=== PATIENT | female | born 1960 | race Asian ===

== ENCOUNTER 2017-05-24 14:40 | Outpatient (CLI) | payer OTHER, BC ==
[2017-05-24 13:09] LABS: BASOPHILS # (AUTO) 0.1 10^3/uL (0.0-0.1); BASOPHILS % (AUTO) 0.9 %; EOSINOPHILS # (AUTO) 0.2 10^3/uL (0.0-0.7); EOSINOPHILS % (AUTO) 4.3 %; HCT - HEMATOCRIT 39.8 % (37.0-47.0); HGB - HEMOGLOBIN 13.2 g/dL (12.0-16.0); LYMPHOCYTES # (AUTO) 2.1 10^3/uL (1.5-3.5); LYMPHOCYTES % (AUTO) 35.9 %; MEAN CORPUSCULAR HEMOGLOBIN 29.8 pg (27.0-31.0); MEAN CORPUSCULAR HGB CONC 33.2 g/dL (32.0-36.0); MEAN CORPUSCULAR VOLUME 89.9 fL (81.0-99.0); MEAN PLATELET VOLUME 8.3 fL (7.9-10.8); MONOCYTES # (AUTO) 0.4 10^3/uL (0.0-1.0); MONOCYTES % (AUTO) 7.2 %; NEUTROPHILS % (AUTO) 51.7 %; RED BLOOD COUNT 4.43 10^6/uL (4.20-5.40); RED CELL DISTRIBUTION WIDTH 12.8 % (12.0-15.0); UNCORRECTED WHITE BLOOD COUNT 5.8 x10^3/uL; WHITE BLOOD COUNT 5.8 x10^3/uL (4.8-10.8)
[2017-05-24 13:41] LABS: ALBUMIN/GLOBULIN RATIO 1.1 (1.0-2.2); BILIRUBIN,TOTAL 0.9 mg/dL (0.2-1.0); BUN - BLOOD UREA NITROGEN 14 mg/dL (6-20); CALCIUM 9.2 mg/dL (8.5-10.3); CARBON DIOXIDE - CO2 26 mmol/L (21-32); CHLORIDE 103 mmol/L (101-111); CHOL/HDL RATIO 3.5 (<4.4); CHOLESTEROL 173 mg/dL; CREATININE 0.6 mg/dL (0.4-1.0); GFR - MDRD 104 (>89); GLUCOSE 99 mg/dL (70-100); HDL CHOLESTEROL 50 mg/dL; LDL/HDL RATIO 2.1 (<4.4); POTASSIUM 3.6 mmol/L (3.5-5.0); SODIUM 135 mmol/L (135-145); TOTAL PROTEIN 8.1 g/dL (6.7-8.2); TRIGLYCERIDES 82 mg/dL; VLDL CHOLESTEROL 16 mg/dL
== END 2017-05-24 14:41 | disposition home or self-care (01) ==
LOC: LAB.WCP 14:40
PROVIDERS: ATTEND Physician Assistant Medical
DX: Z00.00 Encounter for general adult medical examination without abnormal findings (principal)
CPT/HCPCS: 36415; 80053; 80061; 84443; 85025

== ENCOUNTER 2017-06-07 12:03 | Outpatient (CLI) | payer OTHER, BC | END 2017-06-07 12:04 | disposition home or self-care (01) | LOC: DI.N 12:03 | PROVIDERS: ATTEND Physician Assistant Medical | DX: Z53.9 Procedure and treatment not carried out, unspecified reason (principal) ==

== ENCOUNTER 2018-03-18 00:35 | Emergency (ER) | payer OTHER, BC ==
[2018-03-18] MEDS ORDERED: fentaNYL 100 MCG/2 ML VIAL IVP STA (01:11)
[2018-03-18] MEDS ORDERED: ONDANSETRON 4 MG/2 ML VIAL IVP STA (01:11)
[2018-03-18] MEDS ORDERED: SODIUM CHLORIDE 0.9% 1,000 ML IV ONE (01:11)
[2018-03-18 01:22] LABS: BASOPHILS # (AUTO) 0.1 10^3/uL (0.0-0.1); BASOPHILS % (AUTO) 0.5 %; EOSINOPHILS # (AUTO) 0.1 10^3/uL (0.0-0.7); EOSINOPHILS % (AUTO) 0.3 %; HGB - HEMOGLOBIN 14.1 g/dL (12.0-16.0); LYMPHOCYTES % (AUTO) 9.9 %; MEAN CORPUSCULAR HEMOGLOBIN 30.1 pg (27.0-31.0); MEAN CORPUSCULAR HGB CONC 32.8 g/dL (32.0-36.0); MEAN CORPUSCULAR VOLUME 91.9 fL (81.0-99.0); MEAN PLATELET VOLUME 8.4 fL (7.9-10.8); MONOCYTES # (AUTO) 0.6 10^3/uL (0.0-1.0); MONOCYTES % (AUTO) 2.9 %; NEUTROPHILS # (AUTO) 17.2 10^3/uL (1.5-6.6); NEUTROPHILS % (AUTO) 86.4 %; PLT - PLATELET COUNT 268 10^3/uL (130-450); RED BLOOD COUNT 4.69 10^6/uL (4.20-5.40); WHITE BLOOD COUNT 19.9 x10^3/uL (4.8-10.8)
[2018-03-18 01:28] LABS: ALBUMIN 4.3 g/dL (3.2-5.5); ALBUMIN/GLOBULIN RATIO 0.9 (1.0-2.2); BILIRUBIN,TOTAL 0.8 mg/dL (0.2-1.0); CALCIUM 9.9 mg/dL (8.5-10.3); CREATININE 0.8 mg/dL (0.4-1.0); TOTAL PROTEIN 8.9 g/dL (6.7-8.2)
[2018-03-18 01:42] LABS: BILIRUBIN,URINE NEGATIVE (NEGATIVE); GLUCOSE, URINE (UA) NEGATIVE (NEGATIVE); KETONES,URINE (UA) NEGATIVE (NEGATIVE); LEUKOCYTE ESTERASE, URINE NEGATIVE (NEGATIVE); NITRITE,URINE NEGATIVE (NEGATIVE); OCCULT BLOOD,URINE NEGATIVE (NEGATIVE); PH,URINE 7.5 PH (5.0-7.5); PROTEIN,URINE TRACE mg/dL (NEGATIVE); UROBILINOGEN,URINE 0.2 (NORMAL) E.U./dL (NORMAL)
[2018-03-18 01:45] LABS: CLARITY,URINE CLEAR (CLEAR); HCG UR QUAL NEGATIVE
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
[2018-03-18 04:34] VITALS: BP 161/84
--- NOTE | 2018-03-18 04:35 | Ultrasound Report ---
Procedure Date: 03/18/2018 Accession Number: [id number] / [id number] Procedure: US - Abdomen Complete CPT Code: FULL RESULT: EXAM: ABDOMEN ULTRASOUND EXAM DATE: 03/18/2018 04:14 AM. CLINICAL HISTORY: Right sided abd. pain- both RUQ and RLQ. COMPARISON: None. TECHNIQUE: Real-time scanning was performed with static images obtained. FINDINGS: Liver: Echogenic. 15.1 cm. Main portal vein flow: Hepatopetal. Gallbladder: Multiple mobile stones in the gallbladder measuring up to 1.4 cm. Wall thickness is normal at 2.8 mm. No focal tenderness over the gallbladder. Biliary System: Common bile duct measures 5.7 mm. No intrahepatic or extrahepatic ductal dilatation. Pancreas: Visualized portion is unremarkable. Kidneys: Right: 10.5 cm longitudinally. Normal. No contour-deforming mass, stones, or hydronephrosis. Left: 10.5 cm longitudinally. Normal. No contour-deforming mass, stones, or hydronephrosis. Spleen: 6.8 cm. Normal in size and echotexture. Aorta and Inferior Vena Cava: Unremarkable where seen. Other: None. IMPRESSION: 1. Multiple mobile stones in the gallbladder measuring up to 1.4 cm. No obvious cholecystitis. 2. No biliary dilatation seen. 3. Echogenic liver suggesting fatty infiltration. 4. No other acute abnormality seen. RADIA
== END 2018-03-18 05:00 | disposition home or self-care (01) ==
LOC: ED 00:35
DX: K80.20 Calculus of gallbladder without cholecystitis without obstruction (principal)
CPT/HCPCS: 36415; 76700; 80053; 81001; 81003; 81025; 83690; 85025; 87086; 96361; 96374; 99283; 99284

== ENCOUNTER 2018-03-19 15:59 | Outpatient (CLI) | payer OTHER, BC ==
[2018-03-19] MEDS ORDERED: IOPAMIDOL-300 100 ML VIAL ONE (16:45)
[2018-03-19] MEDS ORDERED: IOPAMIDOL-300 50 ML VIAL ONE (16:45)
[2018-03-19] MEDS ORDERED: IOPAMIDOL-300 50 ML VIAL PO ONE (18:30)
[2018-03-19] MEDS ORDERED: IOPAMIDOL-300 100 ML VIAL IVP ONE (18:31)
--- NOTE | 2018-03-19 19:26 | CT Report ---
Procedure Date: 03/19/2018 Accession Number: [id number] / [id number] Procedure: CT - Abdomen/Pelvis W/ CPT Code: FULL RESULT: EXAM: CT ABDOMEN AND PELVIS EXAM DATE: 03/19/2018 06:08 PM. CLINICAL HISTORY: ABDOMINAL PAIN. COMPARISONS: None.. TECHNIQUE: Routine helical CT imaging was performed through the abdomen and pelvis. IV contrast: 100 cc Isovue-300. Enteric contrast: Yes. Reconstructions: Coronal and sagittal. In accordance with CT protocol optimization, one or more of the following dose reduction techniques were utilized for this exam: automated exposure control, adjustment of mA and/or KV based on patient size, or use of iterative reconstructive technique. FINDINGS: Lung Bases: There is bibasilar linear atelectasis. Liver: Normal. No masses. Gallbladder/Bile Ducts: There are multiple gallstones in the gallbladder. Common bile duct appears normal in size. Spleen: Normal. Pancreas: Normal. Adrenal Glands: Normal. Kidneys: Normal. No masses or hydronephrosis. Peritoneal Cavity/Bowel: There are multiple loops of dilated small bowel with small bowel wall thickening in the mid and lower abdomen. The distal small bowel is decompressed. Findings consistent with a mid small bowel obstruction. There is mesenteric edema and a small amount of free fluid. There is no free air or abscess. Central mesenteric vessels are patent. There are findings of enteroenterostomy. Pelvic Organs: Normal. The bladder and visualized pelvic organs are within normal limits. Vasculature: No aneurysms or other significant abnormality. Bones: No significant abnormality. Other: None. IMPRESSION: 1. Dilated proximal with decompressed distal small bowel, suspicious for mid small bowel obstruction. 2. Small bowel wall thickening suspicious for enteritis. 3. Previous small bowel surgery and enteroenterostomy. 4. Cholelithiasis. 5. Small free fluid. No abscess. 6. Lower lobe atelectasis. RADIA The call report notification system was initiated by Dr. Grupo Funk at 19:09 hrs on 03/19/18. The above findings were discussed with Devante by Dr. Grupo Funk at 19:24 hrs on 03/19/18.
== END 2018-03-19 16:00 | disposition home or self-care (01) ==
LOC: DI 15:59
PROVIDERS: ATTEND Family Medicine
DX: K59.9 Functional intestinal disorder, unspecified (principal); K80.20 Calculus of gallbladder without cholecystitis without obstruction; J98.11 Atelectasis
CPT/HCPCS: 74177

== ENCOUNTER 2018-03-19 20:06 | Inpatient (IN) | payer OTHER, BC ==
[2018-03-19 20:33] LABS: BASOPHILS # (AUTO) 0.1 10^3/uL (0.0-0.1); BASOPHILS % (AUTO) 0.5 %; EOSINOPHILS # (AUTO) 0.1 10^3/uL (0.0-0.7); EOSINOPHILS % (AUTO) 0.7 %; HGB - HEMOGLOBIN 13.2 g/dL (12.0-16.0); LYMPHOCYTES # (AUTO) 1.2 10^3/uL (1.5-3.5); LYMPHOCYTES % (AUTO) 9.4 %; MEAN CORPUSCULAR HEMOGLOBIN 30.4 pg (27.0-31.0); MEAN CORPUSCULAR HGB CONC 32.8 g/dL (32.0-36.0); MEAN CORPUSCULAR VOLUME 92.7 fL (81.0-99.0); MONOCYTES # (AUTO) 0.8 10^3/uL (0.0-1.0); MONOCYTES % (AUTO) 6.7 %; NEUTROPHILS # (AUTO) 10.2 10^3/uL (1.5-6.6); NEUTROPHILS % (AUTO) 82.7 %; PLT - PLATELET COUNT 234 10^3/uL (130-450); RED BLOOD COUNT 4.35 10^6/uL (4.20-5.40); RED CELL DISTRIBUTION WIDTH 12.6 % (12.0-15.0); WHITE BLOOD COUNT 12.3 x10^3/uL (4.8-10.8)
[2018-03-19] MEDS ORDERED: LIDOCAINE JELLY 2% 5 ML TUBE TOP STA (20:33)
--- NOTE | 2018-03-19 20:38 | ED Physician Documentation ---
PD HPI ABD PAIN - Stated complaint Stated Complaint: SBO - Chief complaint Chief Complaint: Abd Pain - History obtained from History obtained from: Patient, Family - History of Present Illness Timing - onset: How many days ago (2) Timing - duration: Days (2) Timing - details: Gradual onset Pain level max: 5 Pain level now: 5 Quality: Aching Location: All over / everywhere Radiation: Other (non-radiating) Improved by: Laying still, Vomiting Worsened by: Eating Associated symptoms: Nausea, Vomiting. No: Fever, Hematemesis, Diarrhea, Constipation, Melena, Hematochezia, Dysuria, Hematuria Similar symptoms before: Has not had sx before Recently seen: Emergency Dept (yesterday), Other (clinic today, states SBO on CT scan) Review of Systems Ten Systems: 10 systems reviewed and negative Constitutional: denies: Fever, Chills Ears: denies: Ear pain Nose: denies: Rhinorrhea / runny nose, Congestion Throat: denies: Sore throat Cardiac: denies: Chest pain / pressure Respiratory: denies: Cough GI: reports: Abdominal Pain, Vomiting. denies: Hematemesis, Bloody / black stool Skin: denies: Rash Musculoskeletal: denies: Neck pain, Back pain Neurologic: denies: Focal weakness, Numbness, Headache PD PAST MEDICAL HISTORY - Past Medical History Past Medical History: Yes Cardiovascular: None Respiratory: None Endocrine/Autoimmune: None - Past Surgical History Past Surgical History: Yes General: Bowel surgery /[employer]: Tubal ligation, Hysterectomy - Present Medications Home Medications: Ambulatory Orders Medication Instructions Recorded Confirmed HYDROcod/ACETAM 5/325 [[place] 5/325] 1 ea PO Q6H PRN #15 tablet 03/18/18 Promethazine [Phenergan] 25 - 50 mg PO Q6H PRN #10 tab 03/18/18 - Allergies Allergies/Adverse Reactions: Allergies Allergy/AdvReac Type Severity Reaction Status Date / Time No Known Drug Allergies Allergy Verified 03/18/18 00:51 - Social History Does the pt smoke?: No Smoking Status: Never smoker Does the pt drink ETOH?: No Does the pt have substance abuse?: No - Immunizations Immunizations are current?: Yes - POLST Patient has POLST: No PD ED PE NORMAL - Vitals Vital signs reviewed: Yes - General General: Alert and oriented X 3, No acute distress - HEENT HEENT: Moist mucous membranes - Neck Neck: Supple, no meningeal sign - Cardiac Cardiac: RRR, Strong equal pulses - Respiratory Respiratory: No respiratory distress, Clear bilaterally - Abdomen Abdomen: Soft, Non distended, Other (mild diffuse TTP without peritoneal signs.) - Back Back: No spinal TTP - Derm Derm: Warm and dry, No rash - Extremities Extremities: No edema - Neuro Neuro: Alert and oriented X 3 - Psych Psych: Normal mood, Normal affect Results - Vitals Vitals: Vital Signs - 24 hr 03/19/18 03/19/18 20:09 20:53 Temperature 36.6 C Heart Rate 85 85 Respiratory 18 18 Rate Blood Pressure 129/80 142/70 H O2 Saturation 98 96 Oxygen O2 Source Room air - Labs Labs: Laboratory Tests 03/19/18 03/19/18 03/19/18 20:25 20:25 20:25 WBC 12.3 H RBC 4.35 Hgb 13.2 Hct 40.3 MCV 92.7 MCH 30.4 MCHC 32.8 RDW 12.6 Plt Count 234 MPV 8.0 Neut # (Auto) 10.2 H Lymph # (Auto) 1.2 L Sully # (Auto) 0.8 Eos # (Auto) 0.1 Baso # (Auto) 0.1 Absolute Nucleated RBC 0.00 Nucleated RBC % 0.0 Sodium 132 L Potassium 3.5 Chloride 96 L Carbon Dioxide 27 Anion Gap 9.0 BUN 10 Creatinine 0.7 Estimated GFR (MDRD) 87 L Glucose 130 H Lactic Acid Calcium 9.1 Magnesium 1.8 Total Bilirubin 1.2 H AST 35 ALT 34 Alkaline Phosphatase 50 Total Protein 7.9 Albumin 3.7 Globulin 4.2 Albumin/Globulin Ratio 0.9 L Lipase 28 03/19/18 20:50 WBC RBC Hgb Hct MCV MCH MCHC RDW Plt Count MPV Neut # (Auto) Lymph # (Auto) Sully # (Auto) Eos # (Auto) Baso # (Auto) Absolute Nucleated RBC Nucleated RBC % Sodium Potassium Chloride Carbon Dioxide Anion Gap BUN Creatinine Estimated GFR (MDRD) Glucose Lactic Acid 0.9 Calcium Magnesium Total Bilirubin AST ALT Alkaline Phosphatase Total Protein Albumin Globulin Albumin/Globulin Ratio Lipase PD MEDICAL DECISION MAKING - ED course Complexity details: reviewed results, re-evaluated patient, considered differential, d/w patient, d/w family, d/w building consultant ED course: Patient is a 57-year-old female who presents with a small bowel obstruction on outpatient CT. Images and report were reviewed. Discussed the case with Dr. Hardy, surgeon who will follow along. Also discussed with Dr. Lewis, hospitalist who accepts. NG tube was placed. Normal lactate. This document was made in part using voice recognition software. While efforts are made to proofread this document, sound alike and grammatical errors may occur. - Sepsis Event Vital Signs: Vital Signs - 24 hr 03/19/18 03/19/18 20:09 20:53 Temperature 36.6 C Heart Rate 85 85 Respiratory 18 18 Rate Blood Pressure 129/80 142/70 H O2 Saturation 98 96 Oxygen O2 Source Room air Departure - Departure Disposition: [address] [facility] DC/Xfer Clinical Impression: Small bowel obstruction Condition: Stable Discharge Date/Time: 03/19/18 21:33
[2018-03-19 20:47] LABS: ALBUMIN 3.7 g/dL (3.2-5.5); ALBUMIN/GLOBULIN RATIO 0.9 (1.0-2.2); BILIRUBIN,TOTAL 1.2 mg/dL (0.2-1.0); CALCIUM 9.1 mg/dL (8.5-10.3); CREATININE 0.7 mg/dL (0.4-1.0); TOTAL PROTEIN 7.9 g/dL (6.7-8.2)
[2018-03-19] MEDS ORDERED: ACETAMINOPHEN 1,000 MG/100 ML 100 ML IV PRN (21:11)
[2018-03-19] MEDS: D5NS W/20 MEQ KCL 1,000 ML IV SCH (22:22)
--- NOTE | 2018-03-20 01:32 | XRAY Report ---
Procedure Date: 03/19/2018 Accession Number: [id number] / [id number] Procedure: XR - Chest 1 View X-Ray CPT Code: 04179 FULL RESULT: EXAM: CHEST RADIOGRAPHY EXAM DATE: 03/19/2018 11:44 PM. CLINICAL HISTORY: For NG tube placement. COMPARISON: CHEST 2 VIEW PA/LAT 09/08/2016. TECHNIQUE: 1 view. FINDINGS: Lungs/Pleura: Small lung volumes. There is no significant consolidation. Minimal streaky left basilar atelectasis. No effusion. No definite pneumothorax. Mediastinum: Within exam limitations, the cardiomediastinal contour is normal. Other: Orogastric tube is looped within the upper stomach. Sidehole projects below the gastroesophageal junction. The tip projects over the gastric cardia. IMPRESSION: Orogastric tube tip projects over the upper stomach. RADIA
[2018-03-20 04:45] LABS: ALBUMIN 3.2 g/dL (3.2-5.5); ALBUMIN/GLOBULIN RATIO 0.9 (1.0-2.2); BASOPHILS % (AUTO) 0.3 %; BILIRUBIN,TOTAL 0.6 mg/dL (0.2-1.0); CALCIUM 8.5 mg/dL (8.5-10.3); CREATININE 0.5 mg/dL (0.4-1.0); EOSINOPHILS # (AUTO) 0.1 10^3/uL (0.0-0.7); EOSINOPHILS % (AUTO) 1.6 %; HGB - HEMOGLOBIN 11.9 g/dL (12.0-16.0); LYMPHOCYTES # (AUTO) 1.7 10^3/uL (1.5-3.5); LYMPHOCYTES % (AUTO) 20.1 %; MEAN CORPUSCULAR HEMOGLOBIN 30.6 pg (27.0-31.0); MEAN CORPUSCULAR HGB CONC 32.8 g/dL (32.0-36.0); MONOCYTES # (AUTO) 0.8 10^3/uL (0.0-1.0); NEUTROPHILS # (AUTO) 5.6 10^3/uL (1.5-6.6); PLT - PLATELET COUNT 209 10^3/uL (130-450); RED CELL DISTRIBUTION WIDTH 12.7 % (12.0-15.0); TOTAL PROTEIN 6.6 g/dL (6.7-8.2); WHITE BLOOD COUNT 8.2 x10^3/uL (4.8-10.8)
--- NOTE | 2018-03-20 04:51 | HISTORY & PHYSICAL EXAMINATION ---
DATE OF SERVICE: 03/19/2018 Physician: Charley Landin MD HISTORY OF PRESENT ILLNESS: This is a 57-year-old female of [place] descent who has a past history of tubal ligation and hysterectomy, and possibly another bowel surgery. She otherwise denies a past medical history and takes no prescription medications. Patient started to develop abdominal pain with nausea and vomiting 3 days ago. She came to the emergency room [address] scan was ordered, but the CT machine was broken and not available. She did have an ultrasound of the abdomen. Gallstones were seen, but no evidence of cholecystitis. She was sent home with pain medications and nausea and vomiting medications, and advised to have fluids. She continued to have the same symptoms with no improvement. She saw her doctor today who ordered a CT of the abdomen that was done as an outpatient. The patient was home after this CT scan and was called to come back to the hospital because the CT scan showed a small-bowel obstruction in the mid small bowel. In the ER, she has started to get IV hydration and an NG tube was then placed, and she is being admitted for management of small bowel obstruction. PAST MEDICAL HISTORY: Negative, except several surgeries as above. ALLERGIES: NONE. MEDICATIONS PRIOR TO ADMISSION: None. FAMILY HISTORY: No inherited diseases. SOCIAL HISTORY: She works full-time in the [employer], which includes standing on her feet and walking a lot. She lives with her and 1 child and three other children are in the area. She is a nonsmoker who never smoked, drinks no alcohol now as she "quit drinking" alcohol 6 years ago; she states she was heavier use. She denies any illicit drug use. REVIEW OF SYSTEMS: She had no fever, but did have chills intermittently over the past 2-1/2 days. She did have 1 normal bowel movement yesterday with a normal, formed, brown stool. There was no hematemesis in her vomiting. She took home medicines for pain and nausea, and is somnolent currently. A comprehensive review of systems was performed, and the pertinent positives are above and here, the rest are negative. PHYSICAL EXAMINATION GENERAL: Ill-appearing female. VITAL SIGNS: Blood pressure 130/70, heart rate of 80, afebrile, room air saturation 95%. HEENT: Reveals NG tube in place with clear liquid drainage. Her oral mucosa appears dry. NECK: Without JVD or carotid bruits. CHEST: Clear. HEART: Sounds normal. No murmur. ABDOMEN: Soft with no guarding or rebound. There are decreased bowel sounds in the upper abdomen, but present and normal bowel sounds in the left lower quadrant. EXTREMITIES: No clubbing, cyanosis, edema. NEUROLOGIC: Intact, but she is sleepy. LABORATORIES: Sodium 132, potassium 3.5, BUN 10, creatinine 0.7. Lactic acid 0.9, magnesium 1.8, bilirubin 1.2, otherwise normal LFTs. White blood count 12.3 with a left shift, hemoglobin 13.2, platelet count normal at 234. No INR was done. No urinalysis was done. CT of the abdomen that was done earlier today when she was still an outpatient showed: bibasilar atelectasis in the lungs, multiple gallstones, but the common bile duct appears normal. Normal pancreas. Multiple loops of dilated small bowel, and thickened small bowel wall and mesenteric edema. All findings consistent with mid small bowel obstruction. There is free fluid, but no free air and no abscess. The vessels appear patent and there are findings of an enteroenterostomy. IMPRESSION/DIAGNOSES 1. Small-bowel obstruction. 2. Hyponatremia. 3. Atelectasis, likely related to splinting from the abdominal pain. PLAN: Admit the patient. Continue with IV hydration using saline and electrolytes should be followed. NG decompression and bowel rest to continue. Surgical consult to follow along with us in case she develops a surgical abdomen. Continue with p.r.n. medications for pain and antiemetics. Begin incentive spirometry, given the atelectasis, to prevent a pneumonia. DEEP VENOUS THROMBOSIS PROPHYLAXIS: SCDs. CODE STATUS: FULL CODE. ATTESTATION: The patient is expected to be discharged or transfer to another facility within 96 hours: Yes. TD: 03/20/2018 00:09 MAURICE
[2018-03-20] MEDS ORDERED: PHENOL THROAT SPRAY 177 ML MM PRN (06:19)
[2018-03-20] MEDS: D5NS W/20 MEQ KCL 1,000 ML IV SCH ×2 (06:25→16:24)
[2018-03-20] MEDS: HYDROmorphone 0.5 MG/0.5 ML SYRINGE IVP PRN ×2 (06:27→15:01)
[2018-03-20] MEDS: PANTOPRAZOLE 40 MG VIAL IVP SCH ×2 (06:27→16:21)
[2018-03-20] MEDS: SODIUM CHLORIDE FLUSH 0.9% 10 ML SYRINGE IVP PRN ×3 (06:27→15:02)
[2018-03-20] MEDS: SODIUM CHLORIDE FLUSH 0.9% 10 ML SYRINGE IVP SCH ×3 (06:27→16:21)
[2018-03-20] MEDS: PROCHLORPERAZINE 10 MG/2 ML VIAL IVP PRN ×2 (06:59→15:02)
[2018-03-20] MEDS: POLYETHYLENE GLYCOL 3350 17 GM PACKET PO SCH (08:30)
[2018-03-20] MEDS ORDERED: IOPAMIDOL-300 100 ML VIAL ONE (14:03)
[2018-03-20] MEDS ORDERED: IOPAMIDOL-300 100 ML VIAL IVP ONE (14:26)
--- NOTE | 2018-03-20 15:03 | CT Report ---
Procedure Date: 03/20/2018 Accession Number: [id number] / [id number] Procedure: CT - Abdomen/Pelvis W/ CPT Code: FULL RESULT: EXAM: Abdomen/Pelvis W/ DATE: 03/20/2018 2:24 PM CLINICAL HISTORY: abdominal pain again, left eleazar pain COMPARISON: CT abdomen pelvis 03/19/2018. TECHNIQUE: Routine helical CT imaging was performed through the abdomen and pelvis. IV contrast: 100 mL Isovue 300. Enteric contrast: No Reconstructions: Coronal and sagittal. In accordance with CT protocol optimization, one or more of the following dose reduction techniques were utilized for this exam: automated exposure control, adjustment of mA and/or KV based on patient size, or use of iterative reconstructive technique. FINDINGS: There is persistent focal small bowel wall thickening and dilation of the small bowel up to a caliber of 3.5 cm with surrounding fat stranding approximately 30-50 cm proximal to the small bowel anastomosis. Previously administered oral contrast has progressed to large bowel. A second focal area of nondilated small bowel distal to the anastomosis also demonstrates continued wall thickening with mucosal hyperenhancement and a small amount of nearby interloop fluid, image 26 coronal. No free air. Scant calcifications throughout the mesentery and peritoneum, possibly prior peritonitis or mesenteritis/sclerosing process. Interval increase in scant consolidation at the lung bases, left greater than right. Cholelithiasis of the gallbladder with common bile duct dilation to 8 mm. The liver, spleen, adrenal glands, kidneys and pancreas are unremarkable. There is no pelvic mass. IMPRESSION: 1. No bowel obstruction. 2. Multifocal small bowel wall thickening with signs of inflammation. This is nonspecific but can be seen with infection, inflammation and ischemia. 3. Top normal common bile duct caliber for patient age, 8 mm, in the setting of cholelithiasis. Correlate to alkaline phosphatase levels to exclude choledocholithiasis or resolving gallstone ileus at the small bowel anastomosis site. 4. Abdominal calcifications, likely sign of prior mesenteritis/enteritis. 5. Minimal, increased, dependent changes in the lungs, likely atelectasis. Developing pneumonia is not excluded by imaging. RADIA
[2018-03-20] MEDS ORDERED: PIPERACILLIN/TAZOBACTAM 3.375 GM in SODIUM CHLORIDE 0.9% MINIBAG 100 ML IV SCH (16:00)
--- NOTE | 2018-03-20 16:05 | PROVIDER PROGRESS NOTE ---
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 but she complain left eleazar abdominal pain. she denies CP, SOB, fever, chill, cough Current Medications - Current Medications Current Medications: Active Medications Hydromorphone HCl (Dilaudid Inj Syringe) 0.5 mg IVP Q2H PRN PRN Reason: Pain 8 to 10 Last Admin: 03/20/18 15:01 Dose: 0.5 mg Acetaminophen (Ofirmev) 100 mls @ 400 mls/hr IV Q6HR PRN PRN Reason: Pain or Fever > 38C (100.4F) Last Infusion: 03/19/18 22:40 Dose: Infused Metronidazole (Flagyl 500 Mg/100 Ml) 500 mg in 100 mls @ 100 mls/hr IV Q8H [facility] Ciprofloxacin (Cipro 400 Mg/200 Ml) 200 mls @ 200 mls/hr IV Q12H [facility] Last Admin: 03/20/18 16:21 Dose: 200 mls/hr Potassium Chloride/Dextrose/Sod Cl () 1,000 mls @ 75 mls/hr IV .[id number] [facility] Last Admin: 03/20/18 16:24 Dose: 75 mls/hr Pantoprazole Sodium (Protonix) 40 mg IVP BIDAC [facility] Last Admin: 03/20/18 16:21 Dose: 40 mg Phenol/Menthol (Chloraseptic) 2 sprays MM Q2HR PRN PRN Reason: Throat Pain Last Admin: 03/20/18 06:40 Dose: 2 sprays Polyethylene Glycol (Miralax) 17 gm PO DAILY [facility] Last Admin: 03/20/18 08:30 Dose: Not Given Prochlorperazine Edisylate (Compazine Inj) 10 mg IVP Q6HR PRN PRN Reason: Nausea / Vomiting Last Admin: 03/20/18 15:02 Dose: 10 mg Sodium Chloride (Normal Saline Flush 0.9%) 10 ml IVP PRN PRN PRN Reason: NEEDED PER PROVIDER ORDERS Last Admin: 03/20/18 15:02 Dose: 10 ml Sodium Chloride (Normal Saline Flush 0.9%) 10 ml IVP 0100,0900,1700 [facility] Last Admin: 03/20/18 16:21 Dose: 10 ml No Known Home Medications [No Known Home Medications] 03/20/18 Objective - Vital Signs/Intake & Output Reviewed Vital Signs: Yes Vital Signs: Vital Signs x48h Temp Pulse Resp BP Pulse Ox 03/20/18 14:32 37.0 C 96 21 152/82 H 97 03/20/18 08:39 37.0 C 78 19 128/60 96 Intake & Output: Intake & Output 03/17/18 03/18/18 03/19/18 03/20/18 23:59 23:59 23:59 23:59 Intake Total 100 1000 Output Total 200 100 Balance -100 900 - Objective General Appearance: positive: No acute distress, Alert. negative: Lethargic Eyes Bilateral: positive: Normal inspection, PERRL, No lid inflammation, Conjunctivae nml ENT: positive: ENT inspection nml, Pharynx nml, No signs of dehydration. negative: Purulent nasal drainage, Pharyngeal erythema, Oral lesions Neck: positive: Nml inspection, Thyroid nml, No JVD, Trachea midline. negative : Thyromegaly, Lymphadenopathy (R), Lymphadenopathy (L), Stiff neck, Swelling/ bruising, Tracheal deviation Respiratory: positive: Chest non-tender, No respiratory distress, Breath sounds nml. negative: Wheezes, Rales, Rhonchi Cardiovascular: positive: Regular rate & rhythm, No murmur, No gallop. negative : Irregularly irregular, Extrasystoles, Tachycardia, Bradycardia, JVD present, Systolic murmur, Diastolic murmur Peripheral Pulses: 2+ Radial (R), 2+ Radial (L), 2+ Dorsalis pedis (R), 2+ Dorsalis pedis (L) Abdomen: positive: Non-tender, No organomegaly, Nml bowel sounds, No distention. negative: Tenderness, Guarding, Rebound Back: positive: Nml inspection, CVA tenderness (L). negative: CVA tenderness (R ) Skin: positive: Color nml, No rash, Warm, Dry. negative: Cyanosis, Diaphoresis , Pallor Extremities: positive: Non-tender, Full ROM, Nml appearance. negative: Calf tenderness, Joint swelling, Yg's sign/cords Neurologic/Psychiatric: positive: Oriented x3, Motor nml, Sensation nml, Mood/ affect nml. negative: Weakness, Sensory loss, Facial droop, Slurred/abnml speech, Depressed mood/affect - Lab Results Fish Bones: 03/20/18 04:20 03/20/18 04:20 Other Labs: Lab Results x24hrs 03/20/18 03/20/18 Range/Units 04:20 04:20 WBC 8.2 (4.8-10.8) x10^3/uL RBC 3.90 L (4.20-5.40) 10^6/uL Hgb 11.9 L (12.0-16.0) g/dL Hct 36.2 L (37.0-47.0) % MCV 93.0 (81.0-99.0) fL MCH 30.6 (27.0-31.0) pg MCHC 32.8 (32.0-36.0) g/dL RDW 12.7 (12.0-15.0) % Plt Count 209 (130-450) 10^3/uL MPV 8.0 (7.9-10.8) fL Neut # (Auto) 5.6 (1.5-6.6) 10^3/uL Lymph # (Auto) 1.7 (1.5-3.5) 10^3/uL [place] # (Auto) 0.8 (0.0-1.0) 10^3/uL Eos # (Auto) 0.1 (0.0-0.7) 10^3/uL Baso # (Auto) 0.0 (0.0-0.1) 10^3/uL Absolute Nucleated RBC 0.00 x10^3/uL Nucleated RBC % 0.0 /100WBC Sodium 138 (135-145) mmol/L Potassium 4.0 (3.5-5.0) mmol/L Chloride 107 (101-111) mmol/L Carbon Dioxide 26 (21-32) mmol/L Anion Gap 5.0 L (6-13) BUN 7 (6-20) mg/dL Creatinine 0.5 (0.4-1.0) mg/dL Estimated GFR (MDRD) 128 (>89) Glucose 136 H (70-100) mg/dL Calcium 8.5 (8.5-10.3) mg/dL Total Bilirubin 0.6 (0.2-1.0) mg/dL AST 24 (10-42) IU/L ALT 29 (10-60) IU/L Alkaline Phosphatase 41 L (42-121) IU/L Total Protein 6.6 L (6.7-8.2) g/dL Albumin 3.2 (3.2-5.5) g/dL Globulin 3.4 (2.1-4.2) g/dL Albumin/Globulin Ratio 0.9 L (1.0-2.2) ABX Reporting Has patient been on IV antibiotics over the past 48 hours?: Yes Assessment/Plan - Problem List (1) Thickened small bowel Impression: new CT today reveals NO bowel obstruction, then d/c NG, pt feels hungry, start clear liquid diet multifocal small bowel wall thickening with sing of inflammation in new CT, pt present abdominal pain start Cipro and Flagyl lab and vital monitor (2) Cholelithiasis Impression: pt has normal alkaline phosphatase, and normal total bili, and liver function CT indicate cholelithiasis pt does not have upper quadrant abdominal pain support Qualifiers: Cholelithiasis location: gallbladder Cholecystitis presence: without cholecystitis Biliary obstruction: without biliary obstruction Qualified Code(s): K80.20 - Calculus of gallbladder without cholecystitis without obstruction
[2018-03-20] MEDS: CIPROFLOXACIN 400 MG/200 ML 200 ML IV SCH (16:21)
[2018-03-20] MEDS: metroNIDAZOLE 500 MG/100 ML 500 MG/100 ML BAG IV SCH (17:32)
[2018-03-21] MEDS: metroNIDAZOLE 500 MG/100 ML 500 MG/100 ML BAG IV SCH ×2 (00:38→09:06)
[2018-03-21] MEDS: SODIUM CHLORIDE FLUSH 0.9% 10 ML SYRINGE IVP SCH ×2 (01:41→09:09)
[2018-03-21] MEDS: CIPROFLOXACIN 400 MG/200 ML 200 ML IV SCH (04:21)
[2018-03-21 04:44] LABS: BASOPHILS % (AUTO) 0.4 %; EOSINOPHILS # (AUTO) 0.2 10^3/uL (0.0-0.7); EOSINOPHILS % (AUTO) 2.7 %; HGB - HEMOGLOBIN 11.7 g/dL (12.0-16.0); LYMPHOCYTES # (AUTO) 1.8 10^3/uL (1.5-3.5); LYMPHOCYTES % (AUTO) 20.9 %; MEAN CORPUSCULAR HEMOGLOBIN 31.2 pg (27.0-31.0); MEAN CORPUSCULAR HGB CONC 34.2 g/dL (32.0-36.0); MEAN PLATELET VOLUME 7.8 fL (7.9-10.8); MONOCYTES # (AUTO) 0.8 10^3/uL (0.0-1.0); MONOCYTES % (AUTO) 9.4 %; NEUTROPHILS # (AUTO) 5.7 10^3/uL (1.5-6.6); NEUTROPHILS % (AUTO) 66.6 %; PLT - PLATELET COUNT 210 10^3/uL (130-450); RED BLOOD COUNT 3.74 10^6/uL (4.20-5.40); RED CELL DISTRIBUTION WIDTH 12.7 % (12.0-15.0); WHITE BLOOD COUNT 8.6 x10^3/uL (4.8-10.8)
[2018-03-21 05:01] LABS: ALBUMIN 3.2 g/dL (3.2-5.5); ALKALINE PHOSPHATASE 39 IU/L (42-121); ALT ALANINE AMINOTRANSFERASE 26 IU/L (10-60); AST ASPARTATE AMINOTRANSFERASE 18 IU/L (10-42); BILIRUBIN,TOTAL 0.8 mg/dL (0.2-1.0); BUN - BLOOD UREA NITROGEN < 5 mg/dL (6-20); CALCIUM 8.4 mg/dL (8.5-10.3); CARBON DIOXIDE - CO2 28 mmol/L (21-32); CHLORIDE 107 mmol/L (101-111); CREATININE 0.6 mg/dL (0.4-1.0); GFR - MDRD 104 (>89); GLUCOSE 119 mg/dL (70-100); SODIUM 138 mmol/L (135-145); TOTAL PROTEIN 6.4 g/dL (6.7-8.2)
[2018-03-21] MEDS: PANTOPRAZOLE 40 MG VIAL IVP SCH (07:02)
[2018-03-21] MEDS: D5NS W/20 MEQ KCL 1,000 ML IV SCH (07:02)
[2018-03-21 07:41] VITALS: BP 111/48
[2018-03-21] MEDS: POLYETHYLENE GLYCOL 3350 17 GM PACKET PO SCH (10:43)
--- NOTE | 2018-03-21 13:03 | Discharge Plan ---
Discharge Plan Disposition: Home, Self Care Condition: Poor Prescriptions: Ciprofloxacin HCl [Cipro] 500 mg PO BID #14 tablet Metronidazole [Flagyl] 500 mg PO BID #14 tablet Diet: Regular Activity Restrictions: Activity as Tolerated Shower Restrictions: No (fall precaution) Instruction Topics: Ciprofloxacin tablets, Metronidazole tablets or capsules Additional Instructions or Follow Up instructions: your may follow up your PCP in one week. should your symptoms return or worsen, you may present ER or call 911 for help No Smoking: If you smoke, Please STOP! Call for help. Follow-up with: Wilfredo Flynn MD [Primary Care Provider] -
--- NOTE | 2018-03-21 13:08 | DISCHARGE SUMMARY ---
Discharge Summary Discharge Date: 03/21/18 Discharging Provider: COUGHLIN Primary Care Provider: Dr. Flynn Condition at Discharge: Poor Discharge Disposition: 01 Home, Self Care Discharge Facility Name: home - DIAGNOSES Admission Diagnoses: (1)Small bowel obstruction (2) Cholelithiasis Discharge Diagnoses with Status of Each Condition: (1) Thickened small bowel No abdominal pain, no nausea/vomiting. pt tolerate regular diet. pt had bowel movement. new CT reveals no SBO. pt is prescribed Cipro and Flagyl to home. pt is very happy to be d/c to home today. new CT reveals no SBO but with thickened small bowel and pt still complain of abdominal pain. After treat with cipro and flagyl. pt is asymptomatic, and tolerate regular diet, and request d/c to home, and happy to be d/c to home (2) Cholelithiasis stable, no pain. US and CT of abdomen reveals no acute findings - HPI History of Present Illness: please reviews Dr. Landin's HPI for in detail. Briefly pt was admitted for SBO. surgery consult was made. pt had bowel movement next day but still complaint abdominal pain at left. new CT reveals no SBO but with thickened small bowel and pt still complain of abdominal pain. After treat with cipro and flagyl. pt is asymptomatic, and tolerate regular diet. - ALLERGIES Allergies/Adverse Reactions: Allergies Allergy/AdvReac Type Severity Reaction Status Date / Time No Known Drug Allergies Allergy Verified 03/18/18 00:51 - MEDICATIONS Home Medications: Ambulatory Orders Medication Instructions Recorded Confirmed Ciprofloxacin HCl [Cipro] 500 mg PO BID #14 tablet 03/21/18 Metronidazole [Flagyl] 500 mg PO BID #14 tablet 03/21/18 - PHYSICAL EXAM AT DISCHARGE General Appearance: positive: No acute distress, Alert. negative: Lethargic Eyes Bilateral: positive: Normal inspection, PERRL, No lid inflammation, Conjunctivae nml ENT: positive: ENT inspection nml, Pharynx nml, No signs of dehydration. negative: Purulent nasal drainage, Pharyngeal erythema, Oral lesions Neck: positive: Nml inspection, Thyroid nml, No JVD, Trachea midline. negative : Thyromegaly, Lymphadenopathy (R), Lymphadenopathy (L), Stiff neck, Swelling/ bruising, Tracheal deviation Respiratory: positive: Chest non-tender, No respiratory distress, Breath sounds nml. negative: Wheezes, Rales, Rhonchi Cardiovascular: positive: Regular rate & rhythm, No murmur, No gallop. negative : Irregularly irregular, Extrasystoles, Tachycardia, Bradycardia, JVD present, Systolic murmur, Diastolic murmur Peripheral Pulses: positive: 2+ Abdomen: positive: Non-tender, No organomegaly, Nml bowel sounds, No distention. negative: Tenderness, Guarding, Rebound Back: positive: Nml inspection. negative: CVA tenderness (R), CVA tenderness (L ) Skin: positive: Color nml, No rash, Warm, Dry. negative: Cyanosis, Diaphoresis , Pallor Extremities: positive: Non-tender, Full ROM, Nml appearance. negative: Calf tenderness, Joint swelling, Yg's sign/cords Neurologic/Psychiatric: positive: Oriented x3, Motor nml, Sensation nml, Mood/ affect nml. negative: Weakness, Sensory loss, Facial droop, Slurred/abnml speech, Depressed mood/affect - LABS Result Diagrams: 03/21/18 04:10 03/21/18 04:10 - FOLLOW UP Follow Up: your may follow up your PCP in one week. should your symptoms return or worsen, you may present ER or call 911 for help - TIME SPENT Time Spent in Discharge (Minutes): 45
== END 2018-03-21 13:40 | disposition home or self-care (01) | DRG 389 ==
LOC: ED 20:06 → MS3 21:05
PROVIDERS: ADMIT Internal Medicine; ATTEND Nurse Practitioner Gerontology
DX: K56.609 Unspecified intestinal obstruction, unspecified as to partial versus complete obstruction (principal); J98.11 Atelectasis; K80.20 Calculus of gallbladder without cholecystitis without obstruction; K59.9 Functional intestinal disorder, unspecified; Z98.890 Other specified postprocedural states
CPT/HCPCS: 36415; 71045; 74177; 80053; 83605; 83690; 83735; 85025; 99284; 99285

== ENCOUNTER 2018-10-18 10:42 | Outpatient (CLI) | payer OTHER, BC ==
[2018-10-18 19:21] LABS: CHOL/HDL RATIO 3.3 (<4.4); CHOLESTEROL 178 mg/dL; HDL CHOLESTEROL 54 mg/dL; LDL CHOLESTEROL,CALCULATED 110 mg/dL; VLDL CHOLESTEROL 14 mg/dL
[2018-10-18 19:51] LABS: HB2 TOTAL 14.6 g/dL; HEMOGLOBIN A1C 0.51 g/dL; HEMOGLOBIN A1C % 5.3 % (4.6-6.2)
== END 2018-10-18 10:43 | disposition home or self-care (01) ==
LOC: LAB.WCP 10:42
PROVIDERS: ATTEND Family Medicine
DX: M89.9 Disorder of bone, unspecified (principal); E55.9 Vitamin D deficiency, unspecified; M85.80 Other specified disorders of bone density and structure, unspecified site; R73.9 Hyperglycemia, unspecified
CPT/HCPCS: 36415; 80061; 83036; 83721; 84443

== ENCOUNTER 2018-11-15 09:15 | Outpatient (CLI) | payer OTHER, BC ==
--- NOTE | 2018-11-15 10:07 | Mammography Report ---
Reason: SCREENING MAMMO Procedure Date: 11/15/2018 Accession Number: [id number] / [id number] Procedure: MGN - Screening Mammo Dig Bilat CPT Code: FULL RESULT: EXAM: Screening Mammo Dig Bilat DATE: 11/15/2018 9:42 AM CLINICAL HISTORY: Screening encounter. No reported risk factors. TECHNIQUE: Bilateral CC and MLO views were obtained. A left laterally exaggerated CC view was obtained. COMPARISON: 06/07/2017 through 07/22/2014. FINDINGS: The breasts demonstrate scattered fibroglandular densities bilaterally. There are coarse typically benign calcifications. No suspicious masses, clustered microcalcifications, or regions of architectural distortion are identified. IMPRESSION: Benign findings RECOMMENDATION: Routine annual screening unless otherwise clinically indicated. BIRADS CATEGORY 2: Benign findings STANDARD QUALIFYING STATEMENTS: 1. This examination was reviewed with the aid of Computer-Aided Detection (CAD). 2. A negative or benign imaging report should not delay biopsy if clinically suspicious findings are present. Consider surgical consultation if warrented. More than 5% of cancers are not identified by imaging. 3. Dense breasts may obscure an underlying neoplasm.
== END 2018-11-15 09:16 | disposition home or self-care (01) ==
LOC: DI.N 09:15
DX: Z12.31 Encounter for screening mammogram for malignant neoplasm of breast (principal)
CPT/HCPCS: 77067

== ENCOUNTER 2018-12-27 08:00 | Outpatient (CLI) | payer OTHER, BC ==
[2018-12-27 13:01] LABS: CHOL/HDL RATIO 3.1 (<4.4); CHOLESTEROL 156 mg/dL; HDL CHOLESTEROL 51 mg/dL; LDL CHOLESTEROL,CALCULATED 93 mg/dL; LDL/HDL RATIO 1.8 (<4.4); VLDL CHOLESTEROL 12 mg/dL
[2018-12-27 13:13] LABS: HB2 TOTAL 14.1 g/dL; HEMOGLOBIN A1C 0.49 g/dL; HEMOGLOBIN A1C % 5.3 % (4.6-6.2)
== END 2018-12-27 23:59 | disposition home or self-care (01) ==
LOC: LAB.WCP 08:00
PROVIDERS: ATTEND Family Medicine
DX: M85.80 Other specified disorders of bone density and structure, unspecified site (principal); E55.9 Vitamin D deficiency, unspecified; E73.9 Lactose intolerance, unspecified; Z01.84 Encounter for antibody response examination
CPT/HCPCS: 36415; 80061; 83036; 83721; 84443; 86765

== ENCOUNTER 2021-03-08 15:30 | Inpatient (IN) | payer OTHER, BC ==
[2021-03-08] MEDS ORDERED: HYDROmorphone 1 MG/ML CARPUJECT IVP STA (15:51)
[2021-03-08] MEDS ORDERED: ONDANSETRON 4 MG/2 ML VIAL IVP STA (15:51)
[2021-03-08] MEDS ORDERED: SODIUM CHLORIDE 0.9% 1,000 ML IV STA (15:51)
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
[2021-03-08 16:01] LABS: BASOPHILS % (AUTO) 0.3 %; EOSINOPHILS # (AUTO) 0.1 10^3/uL (0.0-0.7); EOSINOPHILS % (AUTO) 0.5 %; HCT - HEMATOCRIT 47.2 % (37.0-47.0); HGB - HEMOGLOBIN 15.3 g/dL (12.0-16.0); LYMPHOCYTES # (AUTO) 1.8 10^3/uL (1.5-3.5); MEAN CORPUSCULAR HEMOGLOBIN 29.8 pg (27.0-31.0); MEAN CORPUSCULAR HGB CONC 32.4 g/dL (32.0-36.0); MEAN CORPUSCULAR VOLUME 91.8 fL (81.0-99.0); MEAN PLATELET VOLUME 9.5 fL (7.9-10.8); MONOCYTES # (AUTO) 0.8 10^3/uL (0.0-1.0); NEUTROPHILS # (AUTO) 10.2 10^3/uL (1.5-6.6); NEUTROPHILS % (AUTO) 78.9 %; PLT - PLATELET COUNT 283 10^3/uL (130-450); RED BLOOD COUNT 5.14 10^6/uL (4.20-5.40); RED CELL DISTRIBUTION WIDTH 12.3 % (12.0-15.0)
[2021-03-08] MEDS ORDERED: IOVERSOL 320 100 ML VIAL IVP ONE ×3 (16:08→16:43)
[2021-03-08 16:15] LABS: ALBUMIN 4.7 g/dL (3.2-5.5); BILIRUBIN,TOTAL 1.1 mg/dL (0.2-1.0); CALCIUM 9.9 mg/dL (8.5-10.3); CREATININE 0.6 mg/dL (0.4-1.0); POTASSIUM 3.4 mmol/L (3.5-5.0); TOTAL PROTEIN 9.2 g/dL (6.7-8.2)
[2021-03-08 16:17] LABS: BILIRUBIN,URINE NEGATIVE (NEGATIVE); GLUCOSE, URINE (UA) NEGATIVE (NEGATIVE); KETONES,URINE (UA) NEGATIVE (NEGATIVE); LEUKOCYTE ESTERASE, URINE NEGATIVE (NEGATIVE); NITRITE,URINE NEGATIVE (NEGATIVE); OCCULT BLOOD,URINE NEGATIVE (NEGATIVE); PROTEIN,URINE NEGATIVE (NEGATIVE); UROBILINOGEN,URINE 0.2 (NORMAL) E.U./dL (NORMAL)
[2021-03-08 16:18] LABS: CLARITY,URINE CLEAR (CLEAR)
--- NOTE | 2021-03-08 16:49 | CT Report ---
PROCEDURE: Abdomen/Pelvis W INDICATIONS: gen abd pain; ? SBO CONTRAST: IV CONTRAST: Optiray 320 ml: 100 PO CONTRAST: *NO PO CONTRAST TECHNIQUE: After the administration of IV contrast, 5 mm thick sections acquired from the diaphragms to the symp hysis. 5 mm thick coronal and sagittal reformats were acquired. For radiation dose reduction, the f ollowing was used: automated exposure control, adjustment of mA and/or kV according to patient size. COMPARISON: CT abdomen pelvis 03/20/2018 FINDINGS: Image quality: Excellent. ABDOMEN: Lung bases: Scarring is present at the left lung base. Heart size is normal. Solid organs: Liver and spleen are normal in size and enhancement. Gallbladder demonstrates luminal stones without wall thickening, unchanged Biliary system is non dilated. Pancreas enhances normall y. No adrenal nodules. Kidneys demonstrate normal size and enhancement, without hydronephrosis. Peritoneum and bowel: Dilated loop of small bowel is present with greatest AP dimension measuring 4.2 cm. Appears to be within the right mid abdomen. No free fluid or air. Nodes and vessels: No retroperitoneal or mesenteric adenopathy by size criteria. Aorta and inferior vena cava are normal in size. Miscellaneous: No ventral hernias. PELVIS: Genitourinary: Bladder wall thickness is normal. Miscellaneous: No inguinal hernias or adenopathy. Bones: No suspicious bony lesions. No vertebral body compression fractures. IMPRESSION: 1. Partial small bowel obstruction as above. No evidence of perforation. Reviewed by: Yamilka Sharp MD on 03/08/2021 4:48 PM PDT Approved by: Yamilka Sharp MD on 03/08/2021 4:48 PM PDT Station ID: [id number]
[2021-03-08] MEDS ORDERED: ONDANSETRON 4 MG/2 ML VIAL IVP PRN (17:43)
[2021-03-08] MEDS ORDERED: HYDROmorphone 0.5 MG/0.5 ML SYRINGE IVP PRN (17:43)
[2021-03-08] MEDS ORDERED: ACETAMINOPHEN 1,000 MG/100 ML 100 ML IV PRN (17:43)
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
[2021-03-08 19:00] LABS: B. PARAPERTUSSIS- RESP PCR PAN NOT DETECTED; B. PERTUSSIS- RESP PCR PANEL NOT DETECTED; C. PNEUMONIAE- RESP PCR PANEL NOT DETECTED; CORONAVIRUS 229E-RESP PCR NOT DETECTED; CORONAVIRUS HKU1-RESP PCR NOT DETECTED; CORONAVIRUS NL63-RESP PCR NOT DETECTED; CORONAVIRUS OC43-RESP PCR NOT DETECTED; HUMAN METAPNEUMOVIRUS NOT DETECTED; INFLUENZA A- RESP PCR PANEL NOT DETECTED; INFLUENZA B - RESP PCR PANEL NOT DETECTED; M. PNEUMONIAE- RESP PCR PANEL NOT DETECTED; PARAINFLUENZA VIRUS 1 NOT DETECTED; PARAINFLUENZA VIRUS 2 NOT DETECTED; PARAINFLUENZA VIRUS 3 NOT DETECTED; PARAINFLUENZA VIRUS 4 NOT DETECTED; RHINOVIRUS/ENTEROVIRUS NOT DETECTED; RSV- RESP PCR PANEL NOT DETECTED; SARS-CoV-2 -RESP PCR PANEL NOT DETECTED
[2021-03-08] MEDS: D5NS W/20 MEQ KCL 1,000 ML IV SCH (19:02)
[2021-03-08] MEDS: SODIUM CHLORIDE FLUSH 0.9% 10 ML SYRINGE IVP PRN (19:03)
[2021-03-08] MEDS: methocarbamoL 500 MG TABLET PO SCH (19:03)
[2021-03-08] MEDS: METOCLOPRAMIDE 10 MG/2 ML VIAL IVP SCH (19:03)
--- NOTE | 2021-03-08 21:26 | XRAY Report ---
PROCEDURE: Chest for Line Placement INDICATIONS: NG placement TECHNIQUE: One view of the chest was acquired. COMPARISON: 03/19/2018. FINDINGS: Surgical changes and devices: There is a nasogastric tube extending into the proximal stomach with th e tip in the region of the distal esophagus or gastroesophageal junction. Lungs and pleura: No pleural effusions or pneumothorax. Linear opacities are redemonstrated in the left lung base peripherally compatible scarring. No definite acute consolidation. Mediastinum: Mediastinal contours appear normal. Heart size is normal. Bones and chest wall: No suspicious bony lesions. Overlying soft tissues appear unremarkable. IMPRESSION: 1. Nasogastric tube extends into the proximal stomach, with the side-port in the region of the distal esophagus or gastroesophageal junction. Recommend further advancement into the stomach. Reviewed by: Vickey Walden MD on 03/08/2021 9:25 PM PDT Approved by: Vickey Walden MD on 03/08/2021 9:25 PM PDT Station ID: [id number]
[2021-03-09] MEDS: METOCLOPRAMIDE 10 MG/2 ML VIAL IVP SCH ×5 (00:54→23:49)
[2021-03-09] MEDS: methocarbamoL 500 MG TABLET PO SCH ×5 (00:54→23:49)
[2021-03-09] MEDS: SODIUM CHLORIDE FLUSH 0.9% 10 ML SYRINGE IVP PRN ×2 (00:55→06:15)
[2021-03-09] MEDS: SODIUM CHLORIDE FLUSH 0.9% 10 ML SYRINGE IVP SCH ×4 (02:55→23:56)
[2021-03-09] MEDS: D5NS W/20 MEQ KCL 1,000 ML IV SCH ×3 (03:15→19:49)
[2021-03-09] MEDS ORDERED: PHENOL THROAT SPRAY 177 ML MM PRN (05:40)
[2021-03-09] MEDS: PANTOPRAZOLE 40 MG VIAL IVP SCH (06:15)
[2021-03-09] MEDS: ENOXAPARIN 40 MG/0.4 ML SYRINGE SUBQ SCH (08:34)
--- NOTE | 2021-03-09 09:17 | PHARMACY PROGRESS NOTE ---
- Best Possible Medication History Admit Date and Time: 03/08/21 1742 Processed by: Nursing Medication History completed: Yes Patient Interview: Completed (MED REC COMPLETED BY NURSING) As the person ultimately responsible for medication therapy, providers are able to order a medication from an existing home medication list in [facility] via the "Reconcile Routine" prior to Confirmation of that medication by work station support specialist. Such practice is discouraged except when the physician, in their clinical judgment, deems that a medical need exists for a medication without regard to previous use.
[2021-03-10] MEDS: D5NS W/20 MEQ KCL 1,000 ML IV SCH ×3 (04:01→20:45)
[2021-03-10] MEDS: PANTOPRAZOLE 40 MG VIAL IVP SCH (06:14)
[2021-03-10] MEDS: METOCLOPRAMIDE 10 MG/2 ML VIAL IVP SCH ×3 (06:14→17:17)
[2021-03-10] MEDS: methocarbamoL 500 MG TABLET PO SCH ×3 (06:14→17:17)
[2021-03-10] MEDS: ENOXAPARIN 40 MG/0.4 ML SYRINGE SUBQ SCH (08:51)
[2021-03-10] MEDS: SODIUM CHLORIDE FLUSH 0.9% 10 ML SYRINGE IVP SCH ×2 (08:51→17:17)
[2021-03-10] MEDS ORDERED: IOVERSOL 320 100 ML VIAL IVP ONE ×2 (15:06→16:48)
[2021-03-10] MEDS ORDERED: IOVERSOL 320 50 ML VIAL ONE (15:07)
[2021-03-10] MEDS ORDERED: IOVERSOL 320 50 ML VIAL PO ONE (16:48)
--- NOTE | 2021-03-10 17:15 | CT Report ---
PROCEDURE: Abdomen/Pelvis W INDICATIONS: evaluate for resolution of sbo CONTRAST: IV CONTRAST: Optiray 320 ml: 100 PO CONTRAST: Optiray 320 ml50 TECHNIQUE: After the administration of oral and intravenous contrast, 5 mm thick sections acquired from the diap hragms to the symphysis. 5 mm thick coronal and sagittal reformats were acquired. For radiation dos e reduction, the following was used: automated exposure control, adjustment of mA and/or kV accordin g to patient size. COMPARISON: CT abdomen and pelvis 03/08/2021. FINDINGS: Image quality: Excellent. ABDOMEN: Lung bases: Mild streaky opacity at the lung bases is most consistent with atelectasis. A nodular opa city at the left lung base is increased in size and has the appearance of round atelectasis. Adjacent calcified granuloma. Heart size is normal. Solid organs: Liver and spleen are normal in size and enhancement. Gallbladder demonstrate several gallstones. Biliary system is non dilated. Pancreas enhances normally. No adrenal nodules. Kidney s demonstrate normal size and enhancement, without hydronephrosis. Peritoneum and bowel: Enteric tube terminating in the stomach. A few mildly prominent loops of small bowel in the left abdomen. This is substantially improved. Oral contrast transits to the level of th e distal transverse colon. Suture material in the left abdomen. A few colonic diverticuli. Appendix i s not dilated. No free fluid or air. Nodes and vessels: No retroperitoneal or mesenteric adenopathy by size criteria. Aorta and inferior vena cava are normal in size. Miscellaneous: No ventral hernias. PELVIS: Genitourinary: Bladder wall thickness is normal. Bladder is prominent. Post hysterectomy. Miscellaneous: No inguinal hernias or adenopathy. Bones: No suspicious bony lesions. No vertebral body compression fractures. IMPRESSION: 1. Small bowel obstruction is essentially resolved. Enteric tube in the stomach. 2. No free fluid. No pneumoperitoneum. 3. Bibasal atelectasis and probable round atelectasis. Reviewed by: Baljit Stoddard MD on 03/10/2021 5:14 PM PDT Approved by: Baljit Stoddard MD on 03/10/2021 5:14 PM PDT Station ID: [id number]
[2021-03-11] MEDS: methocarbamoL 500 MG TABLET PO SCH ×2 (00:31→06:33)
[2021-03-11] MEDS: METOCLOPRAMIDE 10 MG/2 ML VIAL IVP SCH ×2 (00:32→06:33)
[2021-03-11] MEDS: SODIUM CHLORIDE FLUSH 0.9% 10 ML SYRINGE IVP SCH (00:32)
--- NOTE | 2021-03-11 05:14 | PROVIDER PROGRESS NOTE ---
Progress Note Subjective NG tube in place. No flatus. No bowel movement Objective Afebrile hemodynamically acceptable General Appearance: positive: No acute distress Eyes Bilateral: positive: Normal inspection ENT: positive: ENT inspection nml Neck: positive: Nml inspection Respiratory: positive: Chest non-tender, No respiratory distress, Breath sounds nml. negative: Wheezes, Rales, Rhonchi Cardiovascular: positive: Regular rate & rhythm Abdomen: positive: No distention, Other. negative: Guarding, Rebound Extremities: positive: Non-tender, Full ROM, Nml appearance Neurologic/Psychiatric: positive: Oriented x3, CN's nml (2-12) Abdomen softly distended, no rebound or guarding. Impression/Plan Hospital day #2 partial small bowel obstruction awaiting resolution. Plan as follows: 1. Bowel rest, nasogastric decompression, IV fluid resuscitation. 2. Serial abdominal exams, plain film imaging, possible repeat imaging with CT and contrast challenge. 3. May need operative intervention if fails conservative management. Will follow closely. 4. Electrolytes at this time we will continue to monitor them with daily lab draws.
[2021-03-11] MEDS: PANTOPRAZOLE 40 MG VIAL IVP SCH (06:33)
--- NOTE | 2021-03-11 07:31 | PROVIDER PROGRESS NOTE ---
Progress Note Subjective Patient reports bowel movement with flatus. Nasogastric tube removed and CT scan with oral contrast obtained. Overall feels much improved Objective Afebrile hemodynamically acceptable General Appearance: positive: No acute distress Eyes Bilateral: positive: Normal inspection ENT: positive: ENT inspection nml Neck: positive: Nml inspection Respiratory: positive: Chest non-tender, No respiratory distress, Breath sounds nml. negative: Wheezes, Rales, Rhonchi Cardiovascular: positive: Regular rate & rhythm Abdomen: positive: No distention, Other. negative: Guarding, Rebound Extremities: positive: Non-tender, Full ROM, Nml appearance Neurologic/Psychiatric: positive: Oriented x3, CN's nml (2-12) Abdomen Soft, no tenderness to palpation, no rebound or guarding Impression/Plan Hospital day #3 resolving partial small bowel obstruction awaiting resolution. Advance diet. Likely discharge to home tomorrow morning.
[2021-03-11 07:55] VITALS: BP 132/56
--- NOTE | 2021-03-11 08:58 | Discharge Plan ---
Discharge Plan Problem Reviewed?: Yes Disposition: 01 Home, Self Care Condition: Good Diet: Soft Activity Restrictions: Activity as Tolerated Shower Restrictions: No Driving Restrictions: No Weight Bearing: Full Weight Instruction Topics: Obstruction Sm Bowel Plan of Treatment: DISCHARGE INSTRUCTIONS TEMPLATE: No heavy lifting, pushing, or pulling. Stairs are allowed, no strenuous/exertional activities. 5-10lbs weight carrying limit (i.e. gallon of milk) Call or proceed to clinic/ER for fevers, severe pain, nausea, vomiting, inability to pass flatus/stool, bleeding, wound redness/discharge, weakness, excessively loose stool/diarrhea, or for any other reasonably worrisome symptom or concern. Soft diet, no raw vegetables, avoid high fiber foods. Colace 100mg by mouth twice to three times daily while taking narcotic pain medication. If no bowel movement in 24-48hr, may take 17g Miralax in 8oz water twice daily until bowel movement. May shower, no submersive bathing. Follow up in clinic in 2-[address] while taking narcotic pain medications. Follow up with primary care provider and/or medical subspecialist following discharge as well. Patient not allowed to drive self today or within 24 hours of surgery. No Smoking: If you smoke, Please STOP! Call for help.
--- NOTE | 2021-03-11 08:59 | DISCHARGE SUMMARY ---
"Discharge Summary Admit Date: 03/08/21 Discharge Date: 03/11/21 Primary Care Provider: Eric Code Status: Attempt Resuscitation Condition at Discharge: Good Discharge Disposition: 01 Home, Self Care - DIAGNOSES Admission Diagnoses: 1. History of trauma laparotomy 2. History of peritonitis 3. Recurrent small bowel obstruction Discharge Diagnoses with Status of Each Condition: 1. History of trauma laparotomy - STABLE 2. History of peritonitis - STABLE 3. Recurrent small bowel obstruction - RESOLVED - HPI History of Present Illness: 60-year-old female presenting for partial small bowel obstruction. Nausea vomiting. Historic bowel obstruction with similar symptoms previously. Historic trauma laparotomy remotely for perforated viscus. No significant family history. Notable past surgical history to include trauma laparotomy per above. Patient in acute change in bowel function, denies bleeding per rectum, and also denies reflux associated symptoms. No history of heart attack or stroke. Patient takes no systemic anticoagulation. Endoscopic history includes normal colonoscopy. - CONSULTS | PROCEDURES Consultations: NONE Procedures: NONE - HOSPITAL COURSE Hospital Course: 60 year old female with history of trauma laparotomy, secondary to perforated viscus. She presents with partial small bowel obstruction with associated obstipation. No peritoneal signs at this time. Plan as follows: 1. bowel rest, nasogastric decompression, IV fluid resuscitation. 2. Serial abdominal exams, plain film imaging, possible repeat imaging with CT and contrast challenge. 3. May need operative intervention if fails conservative management. Will follow closely. 4. Electrolytes [normal] at this time we will continue to monitor them with daily lab draws. CT abdomen pelvis impression March 08, 2021: 1. Partial small bowel obstruction with no evidence of perforation Patient was admitted with bowel rest and nasogastric tube decompression. On hospital day #3, the patient was notable for bowel function. Nasogastric tube was removed and repeat imaging was performed. Patient at this time was noted for passage of contrast with multiple bowel movements. Tolerated oral intake without any complication. Denied nausea denied vomiting. Was advanced for diet without any complication. Patient was tolerating p.o. nutrition with soft diet, voiding spontaneously, with positive resumption of bowel function. Afebrile hemodynamically acceptable. Electrolytes repleted throughout and blood counts as a relates to risks of anemia in the perioperative setting and leukocytosis as an inflammatory marker were all stable without any concerns. Discharge instructions given. Plan for follow-up. - ALLERGIES Allergies/Adverse Reactions: Allergies Allergy/AdvReac Type Severity Reaction Status Date / Time No Known Drug Allergies Allergy Verified 03/08/21 15:39 - MEDICATIONS Home Medications: Ambulatory Orders Medication Instructions Recorded Confirmed No Known Home Medications 03/08/21 03/08/21 - PHYSICAL EXAM AT DISCHARGE Physical Exam Other/Comments: General Appearance: positive: No acute distress Eyes Bilateral: positive: Normal inspection ENT: positive: ENT inspection nml Neck: positive: Nml inspection Respiratory: positive: Chest non-tender, No respiratory distress, Breath sounds nml. negative: Wheezes, Rales, Rhonchi Cardiovascular: positive: Regular rate & rhythm Abdomen: positive: No distention, Other. negative: Guarding, Rebound Extremities: positive: Non-tender, Full ROM, Nml appearance Neurologic/Psychiatric: positive: Oriented x3, CN's nml (2-12) Abdomen specified: Soft, nondistended, no palpable hernias, well-healed midline scar. - LABS Result Diagrams: 03/08/21 13:55 03/08/21 13:55 - TIME SPENT Time Spent in Discharge (Minutes): 30"
== END 2021-03-11 09:37 | disposition home or self-care (01) | DRG 390 ==
LOC: ED 15:30 → MS2 17:43 → OBSVTOIN 03-11 07:31
PROVIDERS: ADMIT Surgery; ATTEND Surgery
DX: K56.600 Partial intestinal obstruction, unspecified as to cause (principal); Z87.19 Personal history of other diseases of the digestive system; Z20.822 Contact with and (suspected) exposure to COVID-19; Z98.890 Other specified postprocedural states
CPT/HCPCS: 0202U; 36415; 71045; 74177; 80053; 81003; 83605; 83690; 85025; 96365; 96366; 96367; 96368; 96372; 96375; 96376; 99284; 99285; A9270; G0378; J0131; J1170; J1650; J2765; Q9967; 81001; 87086

== ENCOUNTER 2021-05-09 10:39 | Outpatient (CLI) | payer OTHER, BC ==
[2021-05-09 17:58] LABS: BASOPHILS # (AUTO) 0.1 10^3/uL (0.0-0.1); BASOPHILS % (AUTO) 0.9 %; EOSINOPHILS # (AUTO) 0.2 10^3/uL (0.0-0.7); EOSINOPHILS % (AUTO) 3.4 %; HCT - HEMATOCRIT 40.3 % (37.0-47.0); HGB - HEMOGLOBIN 13.2 g/dL (12.0-16.0); LYMPHOCYTES # (AUTO) 1.5 10^3/uL (1.5-3.5); LYMPHOCYTES % (AUTO) 28.8 %; MEAN CORPUSCULAR HEMOGLOBIN 30.6 pg (27.0-31.0); MEAN CORPUSCULAR HGB CONC 32.8 g/dL (32.0-36.0); MEAN CORPUSCULAR VOLUME 93.3 fL (81.0-99.0); MEAN PLATELET VOLUME 10.7 fL (7.9-10.8); MONOCYTES # (AUTO) 0.4 10^3/uL (0.0-1.0); MONOCYTES % (AUTO) 7.2 %; NEUTROPHILS # (AUTO) 3.2 10^3/uL (1.5-6.6); NEUTROPHILS % (AUTO) 59.5 %; PLT - PLATELET COUNT 263 10^3/uL (130-450); RED BLOOD COUNT 4.32 10^6/uL (4.20-5.40); RED CELL DISTRIBUTION WIDTH 12.6 % (12.0-15.0); WHITE BLOOD COUNT 5.3 x10^3/uL (4.8-10.8)
[2021-05-09 18:14] LABS: ALBUMIN 4.3 g/dL (3.2-5.5); ALBUMIN/GLOBULIN RATIO 1.1 (1.0-2.2); ALKALINE PHOSPHATASE 52 IU/L (42-121); ALT ALANINE AMINOTRANSFERASE 18 IU/L (10-60); AST ASPARTATE AMINOTRANSFERASE 21 IU/L (10-42); BILIRUBIN,TOTAL 1.1 mg/dL (0.2-1.0); BUN - BLOOD UREA NITROGEN 12 mg/dL (6-20); CALCIUM 9.4 mg/dL (8.5-10.3); CARBON DIOXIDE - CO2 25 mmol/L (21-32); CHLORIDE 104 mmol/L (101-111); CHOL/HDL RATIO 3.7 (<4.4); CHOLESTEROL 203 mg/dL; CREATININE 0.5 mg/dL (0.4-1.0); GFR - MDRD 127 (>89); GLUCOSE 97 mg/dL (70-100); HDL CHOLESTEROL 55 mg/dL; LDL CHOLESTEROL,CALCULATED 125 mg/dL; LDL/HDL RATIO 2.3 (<4.4); SODIUM 139 mmol/L (135-145); TOTAL PROTEIN 8.1 g/dL (6.7-8.2); TRIGLYCERIDES 113 mg/dL; VLDL CHOLESTEROL 23 mg/dL
[2021-05-09 18:21] LABS: THYROID STIMULATING HORMONE 1.67 uIU/mL (0.34-5.60)
[2021-05-09 20:31] LABS: ESTIMATED AVERAGE GLUCOSE 105 mg/dL (70-100); HEMOGLOBIN A1c% 5.3 % (4.27-6.07)
== END 2021-05-09 23:59 | disposition home or self-care (01) ==
LOC: LAB.WCP 10:39
PROVIDERS: ATTEND Family Medicine
DX: Z00.00 Encounter for general adult medical examination without abnormal findings (principal); R73.9 Hyperglycemia, unspecified
CPT/HCPCS: 36415; 80053; 80061; 83036; 83721; 84443; 85025

== ENCOUNTER 2021-05-16 11:29 | Outpatient (CLI) | payer OTHER, BC ==
--- NOTE | 2021-05-17 08:51 | Mammography Report ---
BILATERAL DIGITAL SCREENING MAMMOGRAM 3D/2D: 05/16/2021 CLINICAL: Routine screening. Routine screening. Comparison is made to exams dated: 11/15/2018 mammogram, 06/07/2017 mammogram, 12/09/2015 mammogram, mammogram, 09/11/2013 mammogram, and 08/16/2013 mammogram - [facility]. The re are scattered fibroglandular elements in both breasts. No significant masses, calcifications, or other findings are seen in either breast. There has been no significant interval change. IMPRESSION: NEGATIVE There is no mammographic evidence of malignancy. A 1 year screening mammogram is recommended. This exam was interpreted at Station ID: [id number]. NOTE: For mammograms, a report in lay terms will be sent to the patient. Approximately 15% of breast malignancies will not be visualized mammographically. In the management of a palpable breast mass, a negative mammogram must not discourage biopsy of a clinically suspicious lesion. Electronically Signed By: Vickey Walden M.D. ddp/penrad:05/16/2021 13:07:59 ACR BI-RADS Category 1: Negative 3341F PARENCHYMAL PATTERN: (A) - The breast(s) demonstrate(s) scattered fibroglandular densities. BI-RADS CATEGORY: (1) - 1 RECOMMENDATION: (ANNUAL) - Recommend routine annual screening mammography. [id number] 1 year screening LATERALITY: (B)
== END 2021-05-16 11:30 | disposition home or self-care (01) ==
LOC: DI.N 11:29
DX: Z12.31 Encounter for screening mammogram for malignant neoplasm of breast (principal)

== ENCOUNTER 2022-07-31 08:17 | Outpatient (CLI) | payer OTHER, BC ==
[2022-07-31 11:58] LABS: BASOPHILS # (AUTO) 0.1 10^3/uL (0.0-0.1); BASOPHILS % (AUTO) 1.6 %; EOSINOPHILS # (AUTO) 0.4 10^3/uL (0.0-0.7); EOSINOPHILS % (AUTO) 7.2 %; HCT - HEMATOCRIT 41.6 % (37.0-47.0); HGB - HEMOGLOBIN 13.4 g/dL (12.0-16.0); LYMPHOCYTES # (AUTO) 1.8 10^3/uL (1.5-3.5); LYMPHOCYTES % (AUTO) 31.4 %; MEAN CORPUSCULAR HEMOGLOBIN 29.8 pg (27.0-31.0); MEAN CORPUSCULAR HGB CONC 32.2 g/dL (32.0-36.0); MEAN CORPUSCULAR VOLUME 92.4 fL (81.0-99.0); MEAN PLATELET VOLUME 10.2 fL (7.9-10.8); MONOCYTES # (AUTO) 0.5 10^3/uL (0.0-1.0); MONOCYTES % (AUTO) 8.1 %; NEUTROPHILS # (AUTO) 2.9 10^3/uL (1.5-6.6); NEUTROPHILS % (AUTO) 51.5 %; PLT - PLATELET COUNT 257 10^3/uL (130-450); RED CELL DISTRIBUTION WIDTH 13.1 % (12.0-15.0); WHITE BLOOD COUNT 5.7 x10^3/uL (4.8-10.8)
[2022-07-31 12:11] LABS: ESTIMATED AVERAGE GLUCOSE 111 mg/dL (70-100); HEMOGLOBIN A1c% 5.5 % (4.27-6.07)
[2022-07-31 12:44] LABS: ALBUMIN 4.2 g/dL (3.2-5.5); ALBUMIN/GLOBULIN RATIO 1.1 (1.0-2.2); ALKALINE PHOSPHATASE 59 IU/L (42-121); ALT ALANINE AMINOTRANSFERASE 15 IU/L (10-60); AST ASPARTATE AMINOTRANSFERASE 21 IU/L (10-42); BUN - BLOOD UREA NITROGEN 11 mg/dL (6-20); CALCIUM 9.5 mg/dL (8.5-10.3); CARBON DIOXIDE - CO2 28 mmol/L (21-32); CHLORIDE 101 mmol/L (101-111); CHOL/HDL RATIO 3.8 (<4.4); CHOLESTEROL 196 mg/dL; CREATININE 0.6 mg/dL (0.4-1.0); GFR - MDRD 102 (>89); GLUCOSE 109 mg/dL (70-100); HDL CHOLESTEROL 51 mg/dL; LDL CHOLESTEROL,CALCULATED 128 mg/dL; LDL/HDL RATIO 2.5 (<4.4); POTASSIUM 4.1 mmol/L (3.5-5.0); SODIUM 136 mmol/L (135-145); TRIGLYCERIDES 87 mg/dL; VLDL CHOLESTEROL 17 mg/dL
== END 2022-07-31 08:18 | disposition home or self-care (01) ==
LOC: LAB.N 08:17
PROVIDERS: ATTEND Physician Assistant
DX: Z00.00 Encounter for general adult medical examination without abnormal findings (principal); Z13.220 Encounter for screening for lipoid disorders; R73.9 Hyperglycemia, unspecified
CPT/HCPCS: 36415; 80053; 80061; 83036; 83721; 85025

== ENCOUNTER 2022-09-11 08:04 | Outpatient (CLI) | payer OTHER, BC ==
--- NOTE | 2022-09-11 15:02 | DEXA Report ---
PROCEDURE: Dexa Spine and/or Hip INDICATIONS: OSTEOPENIA TECHNIQUE: Dual energy x-ray absorptiometry (DXA) was performed on a [employer] System. Regions measur ed are the AP Spine, femoral neck, and if needed forearm. COMPARISON: None. FINDINGS: Lumbar Spine: Bone Mineral Density 1.072 g/cm/cm,T score -0.9, normal Left Femoral Neck: Bone Mineral Density 0.737 g/cm/cm, T score -2.2, Moderate to severe osteopenia Left Hip: Bone Mineral Density 0.826 g/cm/cm,T score -1.4, mild osteopenia (T score greater or equal to -1.0: NORMAL) (T score from -1.1 to -2.4: OSTEOPENIA) (T score less than or equal to -2.5 to: OSTEOPOROSIS) Impression: Osteopenia is most severe in the left femoral neck. Patients with diagnosis of osteoporosis or osteopenia should have regular bone mineral density assess ment. For those eligible for Medicare, routine testing is allowed once every 2 years. Testing frequ ency can be increased for patients who have rapidly progressing disease or for those who are receivin g medical therapy to restore bone mass. Reviewed by: Yamilka Sharp MD on 09/11/2022 3:01 PM PST Approved by: Yaimlka Sharp MD on 09/11/2022 3:01 PM PST Station ID: [id number]
== END 2022-09-11 08:05 | disposition home or self-care (01) ==
LOC: DI 08:04
PROVIDERS: ATTEND Physician Assistant
DX: M85.89 Other specified disorders of bone density and structure, multiple sites (principal)

== ENCOUNTER 2022-10-23 10:25 | Outpatient (CLI) | payer OTHER, BC ==
--- NOTE | 2022-10-24 10:02 | Mammography Report ---
BILATERAL DIGITAL SCREENING MAMMOGRAM 3D/2D: 10/23/2022 CLINICAL: Routine screening. Comparison is made to exams dated: 05/16/2021 mammogram, 11/15/2018 mammogram, 06/07/2017 mammogram, a nd 12/09/2015 mammogram - [facility]. There are scattered areas of fibroglandular density in both breasts (category b / 25%-50% glandular t issue). No significant masses, calcifications, or other findings are seen in either breast. There has been no significant interval change. IMPRESSION: NEGATIVE There is no mammographic evidence of malignancy. A 1 year screening mammogram is recommended. Based on the Tyrer Cuzick model (a risk assessment model) the patients lifetime risk is 5.4% and her 10 year risk is 2.2%. According to the ACR, ACS, and NCCN guidelines, an annual breast MRI exam tricia g with mammogram is recommended if the patients lifetime risk is 20% or greater. This exam was interpreted at Station ID: [id number]. NOTE: For mammograms, a report in lay terms will be sent to the patient. Approximately 15% of breast malignancies will not be visualized mammographically. In the management of a palpable breast mass, a negative mammogram must not discourage biopsy of a clinically suspicious lesion. Electronically Signed By: Baljit lott/emilio:10/23/2022 17:36:18 letter sent: No_Letter ACR BI-RADS Category 1: Negative 3341F PARENCHYMAL PATTERN: (A) - The breast(s) demonstrate(s) scattered fibroglandular densities. BI-RADS CATEGORY: (1) - 1 Mammogram [id number] 1 year screening LATERALITY: (B)
== END 2022-10-23 10:26 | disposition home or self-care (01) ==
LOC: DI.N 10:25
DX: Z12.31 Encounter for screening mammogram for malignant neoplasm of breast (principal)

== ENCOUNTER 2023-06-08 11:21 | Day surgery (SDC) | payer OTHER, BC ==
[2023-06-08] MEDS ORDERED: LACTATED RINGERS 1,000 ML IV ONE ×3 (11:35→13:32)
--- NOTE | 2023-06-08 12:49 | ANESTHESIA ---
Pre-Anesthesia VS, & Labs - Diagnosis screening - Procedure colonoscopy Vital Signs: Temp Pulse Resp BP Pulse Ox O2 Flow Rate 36.2 C L 77 17 128/76 100 06/08/23 11:45 06/08/23 11:45 06/08/23 11:45 06/08/23 11:45 06/08/23 11:45 Height: 5 ft 2 in Weight (kg): 70.3 kg Body Mass Index: 28.3 BMI Classification: Overweight - NPO >8 hours - Is Patient ?: No - Lab Results Lab results reviewed: Yes Home Medications and Allergies No Known Home Medications 03/08/21 Allergies/Adverse Reactions: Allergies Allergy/AdvReac Type Severity Reaction Status Date / Time No Known Drug Allergies Allergy Verified 03/08/21 15:39 Anes History & Medical History - Anesthetic History Anesthesia Complications: reports: No previous complications Family history of Anesthesia Complications: Denies Family history of Malignant Hyperthermia: Denies - Medical History Cardiovascular: reports: None Pulmonary: reports: None Gastrointestinal: reports: None, Other Urinary: reports: None Neuro: reports: None Musculoskeletal: reports: None Endocrine/Autoimmune: reports: None Blood Disorders: reports: None Skin: reports: None Smoking Status: Never smoker Psychosocial: reports: No issues indicated - Surgical History General: reports: Bowel surgery Gynecologic: reports: Tubal ligation, Hysterectomy Exam General: Alert, Oriented x3, Cooperative Dental: WNL Mouth Openin Fingerbreadth Neck Mobility: Normal Mallampati classification: II Thyromental Distance: 4-6 cm Respiratory: Lungs clear Cardiovascular: Regular rate Plan Anesthesia Type: General, MAC Consent for Procedure(s) Verified and Reviewed: Yes Code Status: Attempt Resuscitation ASA classification: 2-Mild systemic disease Is this case an emergency?: No
[2023-06-08] MEDS ORDERED: PROPOFOL 500 MG/50 ML 500 MG/50 ML VIAL ONE (13:01)
[2023-06-08] MEDS ORDERED: GLYCOPYRROLATE 1 MG/5 ML VIAL ONE (13:01)
--- NOTE | 2023-06-08 13:02 | HISTORY & PHYSICAL EXAMINATION ---
Chief Complaint - Chief Complaint Chief Complaint: here for colonoscopy History of Present Illness - History Obtained From Records Reviewed: yes History obtained from: pt Exam Limitations: none - History of Present Illness HPI Comment/Other: here for colon cancer screening. no recent gi problems. 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: reports: Tubal ligation, Hysterectomy - POLST Patient has POLST: No Meds/Allgy - Home Medications Home Medications: Ambulatory Orders Medication Instructions Recorded Confirmed No Known Home Medications 03/08/21 03/08/21 - Allergies Allergies/Adverse Reactions: Allergies Allergy/AdvReac Type Severity Reaction Status Date / Time No Known Drug Allergies Allergy Verified 03/08/21 15:39 Review of Systems - Other Findings Other Findings: 10 pt ros as above otherwise unremarkable Exam - Vital Signs Vital Signs: Vital Signs x48h Temp Pulse Resp BP Pulse Ox 06/08/23 11:45 36.2 C L 77 17 128/76 100 - Physical Exam General Appearance: positive: No acute distress, Alert Eyes Bilateral: positive: PERRL, EOMI ENT: positive: No signs of dehydration Neck: positive: No JVD Respiratory: positive: No respiratory distress Cardiovascular: positive: Regular rate & rhythm Abdomen: positive: Non-tender, No distention Neurologic/Psychiatric: positive: Oriented x3 Conclusion/Plan - Problem List (1) Colon cancer screening Conclusion/Plan: plan colonoscopy. parq held and consent obtained - Lab Results Lab results reviewed: Yes
[2023-06-08 13:50] VITALS: BP 120/89; O2SAT 99
--- NOTE | 2023-06-08 14:28 | ANESTHESIA POST OP EVALUATION ---
Anesthesia Post Eval - Post Anesthesia Eval Vitals: Last Vital Signs Temp 36.3 C L 06/08/23 13:45 Pulse 75 06/08/23 13:45 Resp 15 06/08/23 13:45 BP 120/89 H 06/08/23 13:45 Pulse Ox 99 06/08/23 13:45 O2 Flow Rate CV Function Including HR & BP: Stable Pain Control: Satisfactory Nausea & Vomiting: Negative Mental Status: Baseline Respiratory Status: Airway Patent Hydration Status: Satisfactory Anesthesia Complications: None
== END 2023-06-08 11:22 | disposition home or self-care (01) ==
LOC: SDS 11:21
PROVIDERS: ATTEND Surgery
DX: Z12.11 Encounter for screening for malignant neoplasm of colon (principal); K57.30 Diverticulosis of large intestine without perforation or abscess without bleeding
CPT/HCPCS: 45378; J7120

== ENCOUNTER 2023-07-30 10:00 | Outpatient (CLI) | payer OTHER, BC ==
[2023-07-30 12:48] LABS: BASOPHILS # (AUTO) 0.1 10^3/uL (0.0-0.1); BASOPHILS % (AUTO) 0.5 %; EOSINOPHILS # (AUTO) 0.2 10^3/uL (0.0-0.7); EOSINOPHILS % (AUTO) 1.3 %; HCT - HEMATOCRIT 38.2 % (37.0-47.0); HGB - HEMOGLOBIN 12.5 g/dL (12.0-16.0); LYMPHOCYTES # (AUTO) 1.9 10^3/uL (1.5-3.5); LYMPHOCYTES % (AUTO) 11.8 %; MEAN CORPUSCULAR HGB CONC 32.7 g/dL (32.0-36.0); MEAN CORPUSCULAR VOLUME 91.8 fL (81.0-99.0); MEAN PLATELET VOLUME 10.1 fL (7.9-10.8); MONOCYTES # (AUTO) 1.3 10^3/uL (0.0-1.0); MONOCYTES % (AUTO) 8.4 %; NEUTROPHILS # (AUTO) 12.4 10^3/uL (1.5-6.6); NEUTROPHILS % (AUTO) 77.6 %; PLT - PLATELET COUNT 322 10^3/uL (130-450); RED BLOOD COUNT 4.16 10^6/uL (4.20-5.40); RED CELL DISTRIBUTION WIDTH 12.3 % (12.0-15.0); WHITE BLOOD COUNT 15.9 x10^3/uL (4.8-10.8)
[2023-07-30 13:07] LABS: ALBUMIN 3.9 g/dL (3.2-5.5); BILIRUBIN,TOTAL 0.9 mg/dL (0.2-1.0); CALCIUM 9.5 mg/dL (8.5-10.3); CREATININE 0.5 mg/dL (0.6-1.3); POTASSIUM 3.9 mmol/L (3.5-4.5); TOTAL PROTEIN 7.7 g/dL (6.4-8.9)
== END 2023-07-30 10:15 | disposition home or self-care (01) ==
LOC: LAB.N 10:00
PROVIDERS: ATTEND Physician Assistant Medical
DX: R10.30 Lower abdominal pain, unspecified (principal)
CPT/HCPCS: 36415; 80053; 83690; 85025

== ENCOUNTER 2023-07-30 14:31 | Emergency (ER) | payer OTHER, BC ==
--- NOTE | 2023-07-30 14:53 | ED Physician Documentation ---
PD HPI ABD PAIN - Stated complaint Stated Complaint: ABD PX - Chief complaint Chief Complaint: Abd Pain - History obtained from History obtained from: Patient - History of Present Illness Timing - onset: Yesterday Timing - duration: Days (08/21) Timing - details: Gradual onset, Still present Quality: Cramping, Aching, Pain Location: LLQ Radiation: No: Chest, Lower back, Left flank Improved by: Laying still. No: Eating Worsened by: Moving, Palpation. No: Eating Associated symptoms: Nausea. No: Fever, Vomiting, Diarrhea, Constipation, Dysuria Similar symptoms before: Has not had sx before Recently seen: Clinic (Seen at the walk-in clinic with blood test done showing an elevated white count. Referred to the ER for further evaluation of the belly pain.) Review of Systems Constitutional: reports: Fever (last night) Nose: denies: Rhinorrhea / runny nose, Congestion Throat: denies: Sore throat Respiratory: denies: Cough GI: reports: Abdominal Pain, Nausea. denies: Vomiting, Diarrhea : denies: Dysuria, Frequency Musculoskeletal: denies: Back pain PD PAST MEDICAL HISTORY - Past Medical History Cardiovascular: None Respiratory: None Neuro: None Endocrine/Autoimmune: None GI: None, Other RESOURCE SPECIALIST: None, Ovarian cysts : None HEENT: None Psych: None Musculoskeletal: None Derm: None - Past Surgical History Past Surgical History: Yes General: Bowel surgery (subsequent to injury) /RESOURCE SPECIALIST: Tubal ligation, Hysterectomy - Present Medications Home Medications: Ambulatory Orders Medication Instructions Recorded Confirmed HYDROcod/ACETAM 5/325 [[place] 5/325] 1 ea PO Q6H PRN #15 tablet 07/30/23 Naproxen 500 mg PO BID #15 tab 07/30/23 Ondansetron Odt [Zofran] 4 mg TL Q6H PRN #10 tablet 07/30/23 cephALEXin [Keflex] 500 mg PO TID #15 cap 07/30/23 metroNIDAZOLE [Flagyl] 500 mg PO BID 5 Days #10 tablet 07/30/23 - Allergies Allergies/Adverse Reactions: Allergies Allergy/AdvReac Type Severity Reaction Status Date / Time No Known Drug Allergies Allergy Verified 03/08/21 15:39 - Social History Does the pt smoke?: No Smoking Status: Never smoker Does the pt drink ETOH?: No Does the pt have substance abuse?: No - Immunizations Immunizations are current?: Yes - POLST Patient has POLST: No PD ED PE NORMAL - Vitals Vital signs reviewed: Yes - General General: Alert and oriented X 3, Well developed/nourished - Cardiac Cardiac: RRR, No murmur - Respiratory Respiratory: Clear bilaterally - Abdomen Abdomen: Normal bowel sounds, Soft, Non distended, No organomegaly, Other (Tender locally in the left lower quadrant with some localized guarding and percussion tenderness. No rebound. Not referred from other areas of the a bdomen. Bowel sounds are present and slightly hypoactive.) - Female Female : Deferred - Rectal Rectal: Deferred - Back Back: No CVA TTP - Derm Derm: Normal color, Warm and dry - Neuro Neuro: Alert and oriented X 3, No motor deficit, Normal speech Results - Vitals Vitals: Oxygen O2 Source Room air - Labs Labs: Laboratory Tests 07/30/23 14:55 Urine Color YELLOW Urine Clarity CLEAR Urine pH 6.0 Ur Specific [place] <=1.005 Urine Protein NEGATIVE Urine Glucose (UA) NEGATIVE Urine Ketones NEGATIVE Urine Occult Blood NEGATIVE Urine Nitrite NEGATIVE Urine Bilirubin NEGATIVE Urine Urobilinogen 0.2 (NORMAL) Ur Leukocyte Esterase NEGATIVE Ur Microscopic Review NOT INDICATED Urine Culture Comments NOT INDICATED - Rads (name of study) abd/pelvic CT Relevant Findings:: Prelim report reviewed, EMP independent interpretation of test (proximal sigmoid diverticulitis with local inflammation. No abscess nor perforation. No free fluid. ) PD Medical Decision Making - ED course Complexity details: reviewed results (acute diverticulitis. ), re-evaluated patient (Improved with IV medications of Toradol and hydromorphone. Ondansetron for nausea. She is feeling improved and taking PO fluids after CT resulted. ), considered differential (1 and half days of increasing left lower abdominal pain. Seen at the walk-in with an elevated white count of 15,000. Referred to the ER. Consideration for diverticulitis versus urinary tract versus stone or other concerns.), d/w patient Reviewed Lab Results: I am viewing the CT and Dx divertiulciulitits uncomplicated but she does have fever earlier, elevated WBC and general malaise. I feel is infectied stage and not just inflammaed so abx as well as NSIADs and pain meds. Departure - Departure Disposition: 01 Home, Self Care Clinical Impression: Left lower quadrant abdominal pain, Acute diverticulitis Condition: Stable Record reviewed to determine appropriate education?: Yes Instructions: ED Diverticulitis Follow-Up: Maude Resendiz PA-C [Primary Care Provider] - Prescriptions: metroNIDAZOLE [Flagyl] 500 mg PO BID 5 Days #10 tablet cephALEXin [Keflex] 500 mg PO TID #15 cap Naproxen 500 mg PO BID #15 tab HYDROcod/ACETAM 5/325 [[place] 5/325] 1 ea PO Q6H PRN #15 tablet PRN Reason: Pain Ondansetron Odt [Zofran] 4 mg TL Q6H PRN #10 tablet PRN Reason: Nausea / Vomiting Comments: Your exam and CT scan are supportive of a diagnosis of diverticulitis. No signs of abscess or perforation. There is should be treatable at home with antibiotics and anti-inflammatories. Small frequent fluids and stay well-hydrated. Metronidazole and cephalexin antibiotics as directed. Naproxen anti-inflammatory twice daily with food. Add ondansetron every 6 hours if needed for nausea. Add Tylenol 500 to 650 mg 4 times a day for the next several days to week for pain. Add hydrocodone/acetaminophen if needed for worse pains. I sent your prescriptions to the [facility] pharmacy in [place]. I would anticipate improvement over the next several days and resolution over 3 to 5 days. Recheck if not improving well in that timeframe and return if worsening. I wrote a note for off work the next couple of days as you likely still feel ill enough. I am prescribing a short course of narcotic pain medication for you. These are potentially dangerous and addictive medications that should be used carefully. These medications may constipate you. Take an ngvk-htq-wvlfgby stool softener such as docusate twice daily with plenty of water while taking these medications. If you go 24 hours without a bowel movement, take dqir-pos-[id number] MiraLAX, per package instructions. Do not drink or drive while taking these medications. If you received narcotic or sedating medications while in the emergency department do not drive for 24 hours. Store this medication in a safe, secure place and out of reach of children. It is a violation of federal law to give or sell this medication to another person or to use in a manner other than prescribed. The ED will not refill narcotic prescriptions, including prescriptions lost or stolen. You can dispose of unwanted medications at the [facility]'s office or at several pharmacies such as [facility]. Forms: PCP List, Activity restrictions Discharge Date/Time: 07/30/23 18:39
[2023-07-30] MEDS ORDERED: HYDROmorphone 1 MG/ML CARPUJECT IVP STA (15:56)
[2023-07-30] MEDS ORDERED: SODIUM CHLORIDE 0.9% 1,000 ML IV STA (15:56)
[2023-07-30] MEDS ORDERED: KETOROLAC 15 MG/ML VIAL IVP STA (15:56)
[2023-07-30 16:14] LABS: BILIRUBIN,URINE NEGATIVE (NEGATIVE); GLUCOSE, URINE (UA) NEGATIVE (NEGATIVE); KETONES,URINE (UA) NEGATIVE (NEGATIVE); LEUKOCYTE ESTERASE, URINE NEGATIVE (NEGATIVE); NITRITE,URINE NEGATIVE (NEGATIVE); OCCULT BLOOD,URINE NEGATIVE (NEGATIVE); PROTEIN,URINE NEGATIVE (NEGATIVE); UROBILINOGEN,URINE 0.2 (NORMAL) E.U./dL (NORMAL)
[2023-07-30 16:17] LABS: CLARITY,URINE CLEAR (CLEAR)
[2023-07-30 16:21] VITALS: O2SAT 100
[2023-07-30] MEDS ORDERED: cefTRIAXone 1 GM VIAL IVP STA (17:51)
[2023-07-30] MEDS ORDERED: metroNIDAZOLE 250 MG TABLET PO STA (17:51)
[2023-07-30] MEDS ORDERED: iohexoL-300 100 ML VIAL IVP ONE (18:27)
[2023-07-30 18:31] VITALS: BP 131/73
--- NOTE | 2023-07-30 18:36 | CT Report ---
PROCEDURE: ABDOMEN/PELVIS W INDICATIONS: left lower abd pain x 1-2 days CONTRAST: 100mL Omni 300 TECHNIQUE: After the administration of IV contrast, 5 mm thick sections acquired from the diaphragms to the symp hysis. 5 mm thick coronal and sagittal reformats were acquired. For radiation dose reduction, the f ollowing was used: automated exposure control, adjustment of mA and/or kV according to patient size. COMPARISON: None FINDINGS: Image quality: Excellent. Lung bases and heart: Small patchy infiltrate/atelectasis in posterior lateral aspect of left lung ba se is seen. Heart size is normal, no pericardial effusion.. Liver: No solid mass. Gallbladder and biliary tree: Multiple calcified stones are seen in dependent portion of gallbladder lumen. No gallbladder wall thickening or pericholecystic fluid. No biliary ductal dilatation. Spleen: No splenomegaly. Pancreas: No pancreatic ductal dilation. Adrenals: No adrenal nodule. Kidneys and ureters: No hydronephrosis. No renal cystic lesion which requires follow up. No solid mas s. Bowel and peritoneum: There is no bowel obstruction. Postsurgical changes are noted in left lower [place] drant with surgical anastomosis appears intact. Appendix is visualized and is within normal limits. N o gastric or small bowel wall thickening. Significant proximal sigmoid colon wall thickening with adj acent pericolonic fat stranding is seen concerning for acute diverticulitis. There is no signs of per foration. No abscess collection. Lymph nodes: No central or retroperitoneal adenopathy. Vessels: No infrarenal aortic aneurysm. PELVIS Reproductive organs: Unremarkable. Bladder: No abnormal wall thickening, accounting for underdistension. Pelvic lymph nodes: No pelvic adenopathy by size criteria. Bones: No aggressive osseous abnormality. Other: No significant ventral or inguinal hernia. IMPRESSION: 1. Finding is suggestive of acute diverticulitis involving proximal sigmoid colon in left lower quadr ant, suggest clinical correlation and follow-up. Normal appendix. No bowel obstruction. No abscess co llection. No free fluid of free air. 2. Cholelithiasis without evidence of acute diverticulitis. Reviewed by: Edinson Durbin MD on 07/30/2023 6:34 PM PST Approved by: Edinson Durbin MD on 07/30/2023 6:34 PM PST Station ID: [id number]
== END 2023-07-30 18:39 | disposition home or self-care (01) ==
LOC: ED 14:31
DX: K57.32 Diverticulitis of large intestine without perforation or abscess without bleeding (principal); R10.32 Left lower quadrant pain
CPT/HCPCS: 36415; 74177; 80053; 81003; 83690; 85025; 96374; 96375; 99284; A9270; J1170; Q9967; 81001; 87086

== ENCOUNTER 2023-12-10 09:24 | Outpatient (CLI) | payer OTHER ==
--- NOTE | 2023-12-11 09:52 | Mammography Report ---
BILATERAL DIGITAL SCREENING MAMMOGRAM 3D/2D: 12/10/2023 CLINICAL: Routine screening. Comparison is made to exams dated: 10/23/2022 mammogram, 05/16/2021 mammogram, 11/15/2018 mammogram, mammogram, 12/09/2015 mammogram, and 08/27/2014 mammogram - [facility]. There are scattered areas of fibroglandular density in both breasts (category b / 25%-50% glandular t issue). There is a possible developing irregular asymmetry in the right breast at 6 o'clock middle depth. No other significant masses, calcifications, or other findings are seen in either breast. IMPRESSION: INCOMPLETE: NEEDS ADDITIONAL IMAGING EVALUATION The possible developing irregular asymmetry in the right breast is indeterminate. Additional views w ith possible ultrasound are recommended. Based on the Tyrer Cuzick model (a risk assessment model) the patient's lifetime risk is 5.3% and her 10 year risk is 2.2%. According to the ACR, ACS, and NCCN guidelines, an annual breast MRI exam tricia g with mammogram is recommended if the patient's lifetime risk is 20% or greater. This exam was interpreted at Station ID: [id number]. NOTE: For mammograms, a report in lay terms will be sent to the patient. Approximately 15% of breast malignancies will not be visualized mammographically. In the management of a palpable breast mass, a negative mammogram must not discourage biopsy of a clinically suspicious lesion. Electronically Signed By: Suellen guan/penrad:12/10/2023 14:11:37 ACR BI-RADS Category 0: Incomplete 3340F PARENCHYMAL PATTERN: (A) - The breast(s) demonstrate(s) scattered fibroglandular densities. BI-RADS CATEGORY: (0) - 0 Mammo and [place] [id number] Immediate follow-up LATERALITY: (B)
== END 2023-12-10 09:25 | disposition home or self-care (01) ==
LOC: DI.N 09:24
DX: Z12.31 Encounter for screening mammogram for malignant neoplasm of breast (principal); R92.323 Mammographic fibroglandular density, bilateral breasts

== ENCOUNTER 2024-01-17 08:34 | Outpatient (CLI) | payer OTHER ==
--- NOTE | 2024-01-18 08:58 | Mammography Report ---
UNILATERAL RIGHT DIGITAL DIAGNOSTIC MAMMOGRAM 3D/2D WITH SPOT COMPRESSION: 01/17/2024 CLINICAL: Patient returns today to evaluate a focal asymmetry in the right breast. Comparison is made to exams dated: 12/10/2023 mammogram, 10/23/2022 mammogram, 05/16/2021 mammogram, 10/19 mammogram, 06/07/2017 mammogram, and 12/09/2015 mammogram - Located within [facility]. There are scattered areas of fibroglandular density in the right breast (category b / 25%-50% glandul ar tissue). There is a possible round low density asymmetry in the right breast at 7 o'clock middle depth. This i s less prominent and not confirmed with additional views. No other significant masses or calcifications are seen in the breast. IMPRESSION: INCOMPLETE: NEEDS ADDITIONAL IMAGING EVALUATION The possible round low density asymmetry in the right breast may be a a cyst or more likely overlappi ng fibroglandular tissue but remains indeterminate. Ultrasound is recommended for full evaluation of this area. This was performed immediately following this exam. Based on the Tyrer Cuzick model (a risk assessment model) the patient's lifetime risk is 5.3% and her 10 year risk is 2.2%. According to the ACR, ACS, and NCCN guidelines, an annual breast MRI exam tricia g with mammogram is recommended if the patient's lifetime risk is 20% or greater. This exam was interpreted at Station ID: [id number]. NOTE: For mammograms, a report in lay terms will be sent to the patient. Approximately 15% of breast malignancies will not be visualized mammographically. In the management of a palpable breast mass, a negative mammogram must not discourage biopsy of a clinically suspicious lesion. Electronically Signed By: Suellen guan/:01/17/2024 10:08:59 ACR BI-RADS Category 0: Incomplete 3340F PARENCHYMAL PATTERN: (A) - The breast(s) demonstrate(s) scattered fibroglandular densities. BI-RADS CATEGORY: (0) - 0 Ultrasound [id number] Immediate follow-up LATERALITY: (B)
--- NOTE | 2024-01-18 08:58 | Ultrasound Report ---
LIMITED ULTRASOUND OF RIGHT BREAST: 01/17/2024 CLINICAL: Patient returns today to evaluate a focal asymmetry in the right breast. Comparison is made to exams dated: 01/17/2024 mammogram, 12/10/2023 mammogram, 10/23/2022 mammogram, 04/21 mammogram, 11/15/2018 mammogram, and 06/07/2017 mammogram - [facility]. Color flow ultrasound of the right breast 7 o'clock region was performed. Calderon scale images of the r eal-time examination were reviewed. There is a 4 mm round cyst in the right breast at 7 o'clock anterior depth. This round cyst is anech oic with an abrupt boundary and posterior acoustic enhancement. This correlates smaller than estimat ed on mammography, but given surrounding fibrous tissue, is likely a correlate. Color flow imaging d emonstrates that there is no vascularity present. IMPRESSION: BENIGN There is no sonographic evidence of malignancy. The 4 mm round cyst in the right breast most likely corresponds to the mammogram finding, is consiste nt with a simple cyst and is benign. Return to annual mammogram screening schedule is recommended. Findings and recommendations were conveyed to the patient at time of exam. This exam was interpreted at Station ID: [id number]. Electronically Signed By: Suellen guan/:01/17/2024 10:10:53 letter sent: No_Letter Ultrasound BI-RADS: 2 Benign BI-RADS CATEGORY: (2) - 2 Mammogram [id number] return to screening LATERALITY: (B)
== END 2024-01-17 08:35 | disposition home or self-care (01) ==
LOC: DI 08:34
PROVIDERS: ATTEND Physician Assistant
DX: N60.01 Solitary cyst of right breast (principal); R92.321 Mammographic fibroglandular density, right breast